=== PATIENT | male | born 1950 | race Caucasian/White ===

== ENCOUNTER 2019-04-04 10:57 | Inpatient (IN) | payer OTHER ==
[~2019-04-04] VITALS: Ht 175.3 cm; Wt 76.4 kg
--- OUTSIDE RECORDS SUMMARY | ~2019-04-04 | XMS | Clinical Summary ---
Demographics + + + | Address | [address] | | | [place] [address] | + + + | Home Phone | | + + + | Preferred Language | Unknown | + + + | Marital Status | | + + + | Adventist Affiliation | 1009 | + + + | Race | Unknown | + + + | Ethnic Group | Unknown | + + + Author + + + | Author | [facility] (Historical as of | | | 02-25-19) | + + + | Organization | [facility] (Historical as of | | | 02-25-19) | + + + | Address | Unknown | + + + | Phone | Unavailable | + + + Support + + +---------+ + | Name | Relationship | Address | Phone | + + +---------+ + | Joseluis Solis | ECON | Unknown | | + + +---------+ + Care Team Providers + +------+ + | Care Web Sizer Name | Role | Phone | + +------+ + | Oral Diaz MD | PP | | + +------+ + Allergies Not on File Current Medications Not on file Active Problems Not on file Social History + +-------+ +--------+------+ | Tobacco Use | Types | Packs/Day | Years | Date | | | | | Used | | + +-------+ +--------+------+ | Never Assessed | | | | | + +-------+ +--------+------+ + + + | Sex Assigned at | Date Recorded | | | | + + + | Not on file | | + + + Plan of Treatment Not on file Results Not on filefrom Last 3 Months"
--- OUTSIDE RECORDS SUMMARY | ~2019-04-04 | XMS | Clinical Summary ---
Demographics + + + | Address | [address] | | | [place] [address] | + + + | Home Phone | | + + + | Preferred Language | Unknown | + + + | Marital Status | Single | + + + | Christianity Affiliation | 1009 | + + + | Race | Unknown | + + + | Ethnic Group | Unknown | + + + Author + + + | Author | [facility] | | | and [place] | + + + | Organization | [facility] | | | and [place] | + + + | Address | Unknown | + + + | Phone | Unavailable | + + + Support + + + + + | Name | Relationship | Address | Phone | + + + + + | Ada Yun | ART | [place], | | + + + + + Care Team Providers + +------+ + | Care Packager Hand Name | Role | Phone | + +------+ + | Jen Oro MD | PCP | | + +------+ + Allergies No Known Allergies Medications + + + +---------+------+------+-------+ | Medication | Sig | Dispensed | Refills | Star | End | Statu | | | | | | t | Date | s | | | | | | Date | | | + + + +---------+------+------+-------+ | sildenafil | Take 50 mg by mouth | | 0 | | | Activ | | (VIAGRA) 100 MG | as needed for | | | | | e | | tablet | Erectile Dysfunction | | | | | | | | (take one-half | | | | | | | | tablet by mouth | | | | | | | | every day for | | | | | | | | erectile dysfuntion; | | | | | | | | no more than 1 dose | | | | | | | | per day/4 per | | | | | | | | month). | | | | | | + + + +---------+------+------+-------+ | cholecalciferol | Take 2,000 Units by | | 0 | | | Activ | | (VITAMIN D-3) 1,000 | mouth Daily. | | | | | e | | units tablet | | | | | | | + + + +---------+------+------+-------+ | ALBUTEROL IN | Inhale into the | | 0 | | | Activ | | | lungs 2 times daily. | | | | | e | + + + +---------+------+------+-------+ | amLODIPine | Take 10 mg by mouth | | 0 | | | Activ | | (NORVASC) 10 MG | Daily. | | | | | e | | tablet | | | | | | | + + + +---------+------+------+-------+ | | Take 25 mg by mouth | | 0 | | | Activ | | hydrochlorothiazide | Daily. | | | | | e | | 25 mg tablet | | | | | | | + + + +---------+------+------+-------+ | pravastatin | Take 80 mg by mouth | | 0 | | | Activ | | (PRAVACHOL) 80 MG | nightly. | | | | | e | | tablet | | | | | | | + + + +---------+------+------+-------+ | ASPIRIN 81 PO | Take 81 mg by mouth | | 0 | | | Activ | | | Daily. | | | | | e | + + + +---------+------+------+-------+ | tamsulosin | Take 0.4 mg by mouth | | 0 | | | Activ | | (FLOMAX) 0.4 mg CAPS | Daily. | | | | | e | + + + +---------+------+------+-------+ | finasteride | Take 1 mg by mouth | | 0 | | | Activ | | (PROPECIA) 1 MG | Daily. | | | | | e | | tablet | | | | | | | + + + +---------+------+------+-------+ | | Inhale 1 puff into | | 0 | | | Activ | | albuterol-ipratropiu | the lungs 4 times | | | | | e | | m (COMBIVENT | daily. | | | | | | | RESPIMAT) 100-20 | | | | | | | | mcg/puff inhaler | | | | | | | + + + +---------+------+------+-------+ Active Problems + + + | Problem | Noted Date | + + + | Preventative health care | 05/17/2018 | + + + + + | Overview: SPERMATOCELECTOMY 05/13/18 [place] Morphologic | | features compatible with spermatocele | + + + + + | CAD (coronary artery disease) | 05/13/2018 | + + + + + | Overview: Cath 2006:1. Moderate coronary artery disease with | | 50% to 60% left circumflex and distal right coronary artery | | stenosis.2. No left ventriculogram done secondary to increased | | creatinine.3. Normal left ventricular end-diastolic pressure. | + + + + + | Kidney disease, chronic, stage I (GFR over 89 ml/min) | 05/13/2018 | + + + + + | Overview: GFR 70 - 05/11/2018 (Based on CR 1.24 and | | [place]) | + + + + + | Spermatocele | 05/13/2018 | + + + | H/O Colon polyps | 01/06/2016 | + + + + + | Overview: Adenomatous polyp of colon | | next colon 12/2018 due to dysplasia | + + + + + | Smoker - Daily | 01/04/2016 | + + + | Special screening for malignant neoplasms, colon | 01/03/2016 | + + + | Positive occult stool blood test | 01/03/2016 | + + + | Hypertension | | + + + | Hyperlipidemia | | + + + | COPD (chronic obstructive pulmonary disease) | | + + + Family History + + +------+ + | Medical History | Relation | Name | Comments | + + +------+ + | Heart attack | Father | | | + + +------+ + | Diabetes | Mother | | | + + +------+ + | Heart attack | Mother | | | + + +------+ + | Diabetes | Sister | | | + + +------+ + + +------+ + + | Relation | Name | Status | Comments | + +------+ + + | Father | | | | + +------+ + + | Mother | | | | + +------+ + + | Sister | | | | + +------+ + + Social History + + + +--------+------+ | Tobacco Use | Types | Packs/Day | Years | Date | | | | | Used | | + + + +--------+------+ | Current Every Day | Cigarettes | 1 | 50 | | | Smoker | | | | | + + + +--------+------+ + +---+---+---+ | Smokeless Tobacco: | | | | | Never Used | | | | + +---+---+---+ + + +---------+ + | Alcohol Use | Drinks/We | oz/Week | Comments | | | ek | | | + + +---------+ + | Yes | 0 | 0.0 | 6 pack beer/ year | | | Standard | | | | | drinks or | | | | | | | | | | equivalen | | | | | t | | | + + +---------+ + + + + | Sex Assigned at | Date Recorded | | | | + + + | Not on file | | + + + + + + + | Job Start Date | Occupation | Industry | + + + + | Not on file | Not on file | Not on file | + + + + + + + + | Travel History | Travel Start | Travel End | + + + + + + | No recent travel history available. | + + Last Filed Vital Signs + + + + | Vital Sign | Reading | Time Taken | + + + + | Blood Pressure | 118/74 | 05/24/2018836 PST | + + + + | Pulse | 72 | 05/24/2018836 PST | + + + + | Temperature | 37.1 C (98.8 F) | 05/13/2018 1615 PDT | + + + + | Respiratory Rate | 16 | 05/24/2018836 PST | + + + + | Oxygen Saturation | 99% | 05/13/20185 PDT | + + + + | Inhaled Oxygen | - | - | | Concentration | | | + + + + | Weight | 84.1 kg (185 lb 6.5 | 05/24/2018836 PST | | | oz) | | + + + + | Height | 175.3 cm (5' 9") | 05/24/2018836 PST | + + + + | Body Mass Index | 27.38 | 05/24/2018 0837 PST | + + + + Plan of Treatment + + + + + | Health Maintenance | Due Date | Last Done | Comments | + + + + + | Hepatitis C | | | | | Screening | 0 | | | + + + + + | Vaccine: | | | | | Dtap/Tdap/Td (1 - | 9 | | | | Tdap) | | | | + + + + + | Vaccine: Zoster (1 | | | | | of 2) | 0 | | | + + + + + | AAA Screening | | | | | | 5 | | | + + + + + | Vaccine: | | | | | Pneumococcal 65+ | 5 | | | | Low/Medium Risk (1 | | | | | of 2 - PCV13) | | | | + + + + + | Adult Annual | | | | | Wellness Visit | 6 | | | + + + + + | Statin Therapy | | | | | (optimal intensity) | 6 | | | + + + + + | Vaccine: Influenza | | | | | (#1) | 9 | | | + + + + + | Lung Cancer | | 04/07/2018 | | | Screening | 9 | | | + + + + + | Colorectal Cancer | | 01/06/2016, 01/06/2016 | | | Screening | 6 | | | | (Colonoscopy) | | | | + + + + + Results Not on filefrom Last 3 Months Insurance + +--------+ +--------+-------+---------+--------+ | Payer | Benefi | Subscriber | Effect | Phone | Address | Type | | | t Plan | ID | hudson | | | | | | / | | Dates | | | | | | Group | | | | | | + +--------+ +--------+-------+---------+--------+ | [employer] | [employer] | [id number] | 04/28/ | | | Indemn | | | NS | | 2018-P | | | ity | | | ADMIN | | resent | | | | | | [place] | | | | | | | | [place] | | | | | | + +--------+ +--------+-------+---------+--------+ | [employer] | [place] | [id number] | | | | Indemn | | | CHOICE | | 016-Pr | | | ity | | | PC3 | | esent | | | | + +--------+ +--------+-------+---------+--------+ + +--------+ +--------+ + + | Guarantor Name | Accoun | Relation to | Date | Phone | Billing Address | | | t Type | Patient | of | | | | | | | | | | + +--------+ +--------+ + + | Kiana Solis | Person | Self [birth year] | [address] | | | al/Fam | | 1950 | [phone] | [address] [place], | | | [place] | | | [address] (Home) | [place] [address] | + +--------+ +--------+ + + Advance Directives Patient has advance care planning documents, and code status on file. For more information, please contact:[facility] [place] [address] + + + + + | Code Status | Date | Date | Comments | | | Activated | Inactivated | | + + + + + | Full Code | 05/13/2018 | 05/13/2018 | | | | 17:09 | 19:48 | | + + + + +
[~2019-04-04 10:57] MED LIST: ADULT LOW DOSE81 MG PO; AMLODIPINE BESY10 MG PO; FINASTERIDE5 MG PO; FLOMAX0.4 MG PO; HYDROCHLOROTH12.5 MG PO; NEURONTIN600 MG PO; PRAVACHOL80 MG PO; VENTOLIN HFA18 GM INH; VITAMIN D32000 UNIT PO
[2019-04-05] MEDS ORDERED: OXYBUTYNIN CHLOR5 MG PO (13:17)
--- NOTE | 2019-04-14 12:04 | NUR ---
PT HAS WAITED WITHOUT NEEDS. HAS BEEN UPDATED EVERY HOUR. HAS STATED OK. IV PATENT.
--- NOTE | 2019-04-14 14:34 | NUR ---
04/14/19 1434 Yen Saavedra7- PT ARRIVES TO PACU NOANROUSABLE TO NOXIOUS STIMULI WITH OPA IN PLACE. RESP EVEN AND UNLABORED. OXYGEN SAT HIGH 90'S TO 100% ON 6L VIA MASK.
--- NOTE | 2019-04-14 15:40 | NUR ---
PATIENT BROUGHT TO UNIT BY LIFT SLAB OPERATOR. REPORT RECEIVED. D5LR RUNNING AT 100 MLS/HR. BULGING TO LEFT ABDOMEN NOTED, DR. DONIS AND SILVICULTURIST NOTIFIED. SILVICULTURIST TO ROOM TO EXAMINE PATIENTS ABDOMEN. FLUID RESTRICTION OF 350 MLS FOR FIRST 8 HOURS EXPLAINED TO PATIENT, HE IS AGREEABLE. 300 MLS OF FLUID BROUGHT TO BEDSIDE. DRESSING IS CLEAN, DRY, AND INTACT. CARNEY IN PLACE. PATIENT IS DROWSY, REPORTS PAIN OF 6/10. ICE APPLIED TO THE ABDOMEN, PILLOW IN PLACE FOR SPLINTING. VITAL SIGNS TAKEN, PATIENT IS STABLE. FAMILY AT BEDSIDE.
--- NOTE | 2019-04-14 16:44 | NUR ---
PATIENT LAYING IN BED WATCHING TV WITH FAMILY IN ROOM. BOWEL TONES ACTIVE IN ALL FOUR QUADRANTS. ABDOMINAL HEMATOMA MARKED PER TOOL CARRIER ORDER. WILL CONTINUE TO ASSESS HEMATOMA. MIDLINE INCISION ABD IS CLEAN, DRY, AND INTACT. VITAL SIGNS STABLE. WARM BLANKET PROVIDED. NO FURTHER NEEDS AT THIS TIME, CALL LIGHT WITHIN REACH.
--- NOTE | 2019-04-14 17:15 | NUR ---
VITALS STABLE, ASSESSMENT COMPLETE. INCISION CLEAN, DRY, AND INTACT. PAIN /. NO N/V, DENIES ANY NEEDS. CALL LIGHT WITHIN REACH.
--- NOTE | 2019-04-14 18:52 | NUR ---
PT C/O 10 PAIN, REPOSITIONED, ICE TO MID LINE, DRSG CDI, CARNEY PATENT, DILAUDID 0.5MG IV GIVEN, ENCOURAGE USE OF INCENTIVE SPIROMETER X5, CONT. PULSE OXIMETER 96% ON RA.IVF PATENT.
--- NOTE | 2019-04-14 19:15 | NUR ---
SHIFT REPORT RECEIVED FROM [facility] RN GERSON AND SHANE AT BEDSIDE. PT AWAKE AND RESTING IN BED. MIDLINE DRESSING C/D/I, NO SHADOWING OR DRAINAGE NOTED. OUTLINE TO PT'S LEFT LATERAL, RELATED TO POSSIBLE HEMOTOMA. WILL MONITOR. SCD'S IN PLACE. CPOX ALSO NOTED, PT ON RA, O2 SAT AND HR WNL. NO FURTHER NEEDS. CALL LIGHT IN REACH. IV FLUIDS INFSUING PER MD ORDERS, SITE WNL.
--- NOTE | 2019-04-14 19:30 | NUR ---
THE NURSE AND I PUT PEDRITO HOSE ON PATIENT AROUND 1720.
--- NOTE | 2019-04-14 21:45 | NUR ---
ASSESSMENT COMPLETE, VSS. CPOX IN PLACE, PT ON RA. O2 SAT AND HR WNL. CARNEY CATHETER IN PLACE, WILL CONTINUE TO MONITOR UO. PT ON FLUIDS RESTRICTION AND ON CLEAR LIQUID DIET. RESTRICTION EXPLAINED TO PT. IV FLUIDS INFUSING PER MD ORDERS, IV SITE WNL. MIDLINE DRESSING CDI, NO SHADOWING OR DRAINAGE NOTED. SUSPECTED HEMOTOMA TO LEFT LATERAL OUTLINED ON DAYSHI. NO CHANGES FROM SHIFT REPORT NOTED, WILL MONITOR. SCHEDULED MEDS GIVEN, SEE EMAR. PT REPORTS 4/10 PAIN, PO MOTRIN PROVIDED. BILATERAL SCD'S AND PEDRITO HOSE IN PLACE. NO FURTHER NEEDS, CALL LIGHT IN REACH.
--- NOTE | 2019-04-14 22:24 | NUR ---
VITALS AND I&OS DONE AND CHARTED. BEDSIDE TABLE AND CALL LIGHT IN REACH.
--- NOTE | 2019-04-14 23:00 | NUR ---
PT RESTING IN BED, EYES OPEN. IV FLUIDS INFUSING PER MD ORDERS, IV SITE WNL. CPOX IN PLACE, PT ON RA. O2 SAT AND HR WNL. WARM BLANKET PROVIDED PER PT REQUEST. NO FURTHER NEEDS, CALL LIGHT IN REACH.
--- NOTE | 2019-04-15 01:41 | NUR ---
ASSESSMENT COMPLETE, VSS. PT REPORTS 8/10 PAIN. 200 MLS OF WATER AT BEDSIDE, PT ON CLEAR LIQUID DIET. REFUSES BROTH AT THIS TIME. NO CHANGES REGARDING ABDOMINAL DRESSING OR SIZE OF SUSPECTED LEFT LATERAL HEMOTOMA. WILL MONITOR. CARNEY CATHETER IN PLACE, VOIDING QS AT THIS TIME. NEW BAG OF IV FLUIDS ASLO HUNG, IV SITE WNL. PT UP SBA WITH USE OF WALKER AND AMBULATED IN ROOM. TOLERATED AMBULATION WELL, CPOX IN PLACE. O2 SAT AND HR REMAINED WNL. BILATERAL SCD'S AND PEDRITO HOSE IN PLACE. NO FURTHER NEEDS, CALL LIGHT IN REACH.
--- NOTE | 2019-04-15 03:18 | NUR ---
PT RESTING IN BED, EYES CLOSED. CPOX IN PLACE, O2 SAT AND HR WNL. IV FLUIDS INFUSING PER MD ORDERS, IV SITE WNL. PT APPEARS COMFORTABLE, NO DISTRESS NOTED.
--- NOTE | 2019-04-15 05:00 | NUR ---
NICOTINE PATCH NOTED TO LEFT SHOULDER. REMOVED AT THIS TIME.
--- NOTE | 2019-04-15 05:14 | NUR ---
PT A/OX4, VSS. CPOX IN PLACE, PT ON RA. USES CALL LIGHT APPROPERIATELY. PT AMBULATED IN ROOM, TOLERATED WELL. IV FLUIDS INFUSING AT 100MLS/HR, IV SITE WNL. CARNEY CATHETER DISCONTINUED AT APPROX 0600, PT VOIDING QS THROUGHOUT THE NIGHT. PAIN CONTROLLED WITH PO PAIN MEDICATION, CLEAR LIQUID DIET WITH FLUIDS RESTRICTION. NO NAUSEA THIS SHIFT. MIDLINE DRESSING C/D/I.
--- NOTE | 2019-04-15 05:17 | NUR ---
VITALS AND I&OS DONE AND CHARTED. GARBAGES EMPTIED. BEDSIDE TABLE AND CALL LIGHT IN REACH.
--- NOTE | 2019-04-15 05:41 | OR ---
[facility] [address], [place] [address] Signed DATE OF OPERATION: 04/14/2019 SURGEON: Isabella Donis MD PREOPERATIVE DIAGNOSIS: Cecal sessile villous adenomatous polyp. POSTOPERATIVE DIAGNOSIS: Cecal sessile villous adenomatous polyp. PROCEDURE: Right colectomy with stapled phzj-wz-kcll ileocolic anastomosis. ESTIMATED BLOOD LOSS: Minimal. FINDINGS: Kiana had a 3 cm sessile circular mucosal lesion opposite the ileocecal valve. No visible or palpable studding of the perineum and liver. No palpable lymphadenopathy. INDICATIONS: Kiana is a 69-year-old gentleman, who presented for a followup colonoscopy. He has a personal history of colonic polyps dating back to 2016. He had a small adenomatous polyp removed at 55 cm. He had tiny hyperplastic polyps removed at 5 cm in the rectum. Unfortunately, he has a sessile villous adenomatous polyp opposite the ileocecal valve. It was negative for high-grade dysplasia or carcinoma. He has just a little bit of diverticulosis. He does have a long redundant colon. A little bit of internal hemorrhoids. I had met with Kiana in the office. I reviewed all the photos with Kiana along with the pathology report. I explained to Kiana this circular sessile polyp was too wide to remove safely with the colonoscope. Consequently, we have to treat it as a cancerous lesion and perform a formal right colectomy. I gave him a [employer] brochure on colorectal polyps and cancer. I marked the location of this lesion on the pictures. I circled all the sections relevant to him. We reviewed in detail the pictures involving the right colectomy. He understands the nature of that surgery along with the expected intraop and postop course. There is risk to the surgery including, but not limited to bleeding, infection, scarring, change in contour of the skin, damage to bowel, anastomotic leak, incisional hernias and other unforeseen comorbidities. We also mike a preoperative CEA level, which was normal at 3.2. He had expressed understanding and wished to proceed. Electronically Signed By: ISABELLA DONIS MD 04/15/19 0541 PATIENT NAME: KIANA JACKSON OPERATIVE REPORT DATE OF : 50 REPORT #: [id number] PHYSICIAN: ISABELLA DONIS MD PCP: ELIE ROSAS NP REPORT IS CONFIDENTIAL AND NOT TO BE RELEASED WITHOUT AUTHORIZATION [facility] [address] [place] [id number] Signed PROCEDURE NOTE: I met with Kiana and his two sisters in our preop area. We had reviewed the above findings. We answered all their questions. After this, Kiana was taken into the operating room and placed in the supine position under general endotracheal tube anesthesia. An orogastric tube had been placed for the duration of surgery. Bilateral tap blocks were placed by our nurse and hoop machine operator. A Fitzgerald catheter was inserted without difficulty with return of clear yellow urine. He was given preoperative antibiotics along with subcutaneous heparin. SCDs were utilized. He was then prepped and draped in the usual sterile fashion. After this, a standard periumbilical midline incision was made and carried into the abdomen with the help of the cautery without difficulty. He had a typical small 12 to 15 mm umbilical hernia. After this, we discovered that he had a fairly mobile cecum and we brought it over and we could easily feel the lesion opposite the ileocecal valve. It was not coming through the serosal surface. It was not adherent to the abdominal wall. We saw no peritoneal studding and there was no evidence of any visible or palpable lesions on the liver. After this, we took down the right colon along the white line of Toldt with the help of the cautery and we mobilize it completely over to the midline including the hepatic flexure over across the top of the duodenum and top of the pancreas. The cecum and appendix were elevated as well in a similar fashion. We divided the terminal ilium about 10 to 12 cm proximal to the cecum with the help of the linear stapler. Similarly, we divided the transverse colon with the help of a linear stapler. The mesocolon was taken down with Pean clamps and [address] the way down including the small bowel mesentery. The entire specimen was thus passed off the field. The specimen had been opened on the back table by our circulating nurse. The lesion was quite visible. We took two pictures for photodocumentation. It was clear that this was too large, too broad, and too thick to remove safely with the colonoscope. We also took down a few adhesions from the gallbladder to the omentum. The terminal ileum was then brought over to the proximal right colon and a standard rgyr-bo-jjot stapled anastomosis was performed. We used 3-0 silk suture posteriorly. We opened the corners of the bowel and brought the colon together with the 75 mm stapler. The ends of the bowel were completely removed with the help of the TA-60 stapler. We then imbricated the anterior staple line with several 3-0 silk Lembert stitches. This gave a nice palpably patent anastomosis about 2.5 almost 3 cm in length. We then closed the mesenteric rent with a running 0 Vicryl suture. The abdomen was copiously irrigated and suctioned out until clear. The bowel was returned to its position and the omentum was brought down over the bowel as well. Our Bookwalter retractor was then removed. We closed the midline fascia with interrupted qtxvrw-ln-zbwbp and simple #1 PDS sutures. The wound was irrigated and suctioned out until clear. We brought the dermis together with interrupted 3-0 Monocryl sutures. The skin edges were reapproximated with multiple frenando. Dry gauze and tape were then applied. Kiana was then awakened from his anesthesia, extubated in the OR, and taken to recovery room in stable condition. A Fitzgerald catheter was left in place. Electronically Signed By: ISABELLA DONIS MD 04/15/19 0541 PATIENT NAME: KIANA JACKSON OPERATIVE REPORT DATE OF : 50 REPORT #: [id number] PHYSICIAN: ISABELLA DONIS MD PCP: ELIE ROSAS NP REPORT IS CONFIDENTIAL AND NOT TO BE RELEASED WITHOUT AUTHORIZATION [address] [address] Signed MD ERICK Mcghee/SENIAL /[id number] cc: MD Jen Mcghee MD Copies: ISABELLA DONIS MD ~ Electronically Signed By: ISABELLA DONIS MD 04/15/19 0541 PATIENT NAME: KIANA JACKSON OPERATIVE REPORT DATE OF : 50 REPORT #: [id number] PHYSICIAN: ISABELLA DONIS MD PCP: ELIE ROSAS NP REPORT IS CONFIDENTIAL AND NOT TO BE RELEASED WITHOUT AUTHORIZATION
--- NOTE | 2019-04-15 06:00 | NUR ---
DR DONIS IN ROOM TO ASSESS PT. ABDOMINAL DRESSING REMOVED BY THIS RN PER MD ORDERS, INCISION WELL APPROXIMATED. LEIGH NOTED. CARNEY CATHETER ALSO DISCONTINUED PER MD ORDERS, PT TOLERATED WELL. NO FURTHER NEEDS, CALL LIGHT IN REACH.
--- NOTE | 2019-04-15 07:32 | NUR ---
REPORT RECEIVED FROM MOISES LEAL. PT RESTING IN BED. PT AGREES TO GET UP FOR BREAKFAST THIS MORNING. PT CONCERNED ABOUT SNAGING LEIGH WITH NO DRESSING ON HIS WOUND. EDUCATION DONE WITH PT. PT VERBALZES UNDERSTANDING. SHOWER PLANNED FOR TODAY. PT REPORTS 5/10 PAIN THAT IS "TOLERABLE." PT DENIES NEED FOR PAIN MEDICATION AT THIS TIME. PT REQUESTING FOOD BUT AGREES TO A POPSICLE OR JELLO. O2 98% ON ROOM AIR, HR = 82. BED RAILS UP. CALL LIGHT WITHIN REACH.
--- NOTE | 2019-04-15 08:06 | NUR ---
MORNING ASSESSMENT AND MEDICAITONS DUE. THIS RN TO BEDSIDE. POPSICLE GIVEN TO PT PER REQUEST. PT STATES HE WOULD LIKE TO EAT AND DRINK MORE. ASSESSMENT DONE. LUNG SOUNDS CLEAR. O2 98% ON ROOM AIR. PT DEMONSTRATES USE OF I.S. 2000ML. RT TO BEDSIDE FOR BREATHING TX. WOUND C/D/I WITH EDGES WELL APROXIMATED. SBA UP TO CHAIR. PT STEADY ON FEET. PT REPORTS 6/10 PAIN. SEE MAR FOR MEDICATION GIVEN. NO ADDITIONAL REQUESTS OR COMPLAINTS AT THIS TIME. CALL LIGHT WITHIN REACH. EDUCATION DONE WITH PT REGARDING PLAN OF CARE.
--- NOTE | 2019-04-15 09:36 | NUR ---
THIS RN TO ROOM TO CHECK ON PT. PT CONTINUES TO REPORT 5/10 PAIN AND REQUESTS ADDITIONAL PAIN MEDICATION. O2 97% ON ROOM AIR. HR 78. SEE MAR FOR MEDICATION GIVEN. PT CONTINUES TO BE DTV. WILL BLADDER SCAN SOON IF PT DOES NOT VOID. PT DRIFTS OFF TO SLEEP. O2 REAMINS AT 97% ON ROOM AIR. CALL LIGHT WITHIN REACH.
--- NOTE | 2019-04-15 10:46 | NUR ---
THIS RN TO ROOM TO CHECK ON PT. PT DENIES PAIN AND NAUSEA. SBA UP TO RESTROOM TO ATTEMPT TO VOID. PT ABLE TO VOID 300ML. SBA BACK TO CHAIR. NO ADDITIONAL REQUESTS OR COMPLAINTS. O2 100% ON ROOM AIR. CALL LIGHT WITHIN REACH.
--- NOTE | 2019-04-15 12:02 | NUR ---
NOON ASSESSMEN DUE. PT UP TO CHAIR. PT REPORTS 2/10 PAIN THAT IS "MUCH BETTER." PT UP TO AMBULATE X1 LAB IN [place] WITH THIS RN. SHOWER PLANNED FOR AFTER LUNCH. SBA FOR AMBULATION, PT BACK TO CHAIR. ASSESSMENT DONE. MEDICATION GIVEN. NO ADDITIONAL REQUESTS OR COMPLAINTS AT THIS TIME. FRIENDS AT BEDSIDE. CALL LIGHT WITHIN REACH. NO ADDITIONAL REQUESTS OR COMPLAINTS AT THIS TIME.
--- NOTE | 2019-04-15 12:18 | NUR ---
PT UPSET ABOUT LACK OF FOOD AND DRINK. MD CONSULTED REGARDING FLUID RESTRICITON. ORDERS TO INCREASE FLUID RESTRICTION TO 500ML Q8HR. JELLOW AND POPSICLE PROVIDED FOR PT. EDUCATION DONE. PT VERBALIZES UNDERSTANDING WITH REPEAT BACK.
--- NOTE | 2019-04-15 14:01 | NUR ---
REPORT GIVEN TO MOISES LIN. QUESTIONS ASKED AND ANSWERED.
--- NOTE | 2019-04-15 15:24 | NUR ---
PT denies need to void at this time. Several family visitors in room at this time. Plan to bladder scan pt here shortly once visitors leave.
[2019-04-15] MEDS ORDERED: COMBIVENT RESPIM4 GM INH (16:16)
--- NOTE | 2019-04-15 16:23 | NUR ---
Medications reconciled using [facility] and patient interview
--- NOTE | 2019-04-15 17:15 | NUR ---
[facility] FOR [facility]POR[facility] OF 5/10 ABD PAIN.
--- NOTE | 2019-04-15 18:55 | NUR ---
SHIFT REPORT RECEIVED FROM DAYSHIFT MOISES ARMENDARIZ AT BEDSIDE. PT RESTING IN CHAIR, EYES CLOSED, RR WNL. ABDOMINAL INCISION OPEN TO AIR, LEIGH NOTED. PER SHIFT REPORT, HEMATOMA TO LEFT LATERAL RESOLVED. PT DENIES ADDITIONAL NEEDS, CALL LIGHT IN REACH.
--- NOTE | 2019-04-15 22:20 | NUR ---
ASSESSMENT COMPLETE, SCHEDULED MEDICATIONS GIVEN (SEE EMAR). NICOTINE PATCH ALSO REMOVED. PT REPORTS 6/10 PAIN, PRN NORCO ADMINISTERED. ABDOMINAL INCISION OPEN TO AIR, LEIGH INTACT, SITE WELL APPROXIMATED. IV FLUIDS INFUSING PER MD ORDERS, IV SITE WNL. SCD'S AND PEDRITO HOSE IN PLACE. NO FURTHER NEEDS, CALL LIGHT IN REACH.
--- NOTE | 2019-04-15 22:22 | NUR ---
ROUNDED CHARGE. PATIENT IS RESTING IN BED. PRIMARY RN AND SOIL SURVEYOR IN ROOM. PATIENT DENIES ANY COMMENTS, QUESTIONS OR CONCERNS. NO NEEDS NOTED. CALL LIGHT IN REACH.
--- NOTE | 2019-04-15 22:25 | NUR ---
VITALS/OUTPUT RECORDED, NURSE TO CALC FL INPUT,
--- NOTE | 2019-04-15 22:32 | NUR ---
SBA PT TO RR, SBA BK INTO BED
--- NOTE | 2019-04-15 23:46 | NUR ---
PT RESTING IN BED, EYES CLOSED, RESPIRATIONS EVEN AND UNLABORED. PT DENIES NEEDS, CALL LIGHT IN REACH. SCD'S AND PEDRITO HOSE IN PLACE.
--- NOTE | 2019-04-16 01:15 | NUR ---
pt resting in bed, eyes closed. respirations even and unlabored. no distress noted, call light in reach.
--- NOTE | 2019-04-16 03:05 | NUR ---
bladder scan done for 733 informed rickey shelton. took pt for a short walk on the [facility] floor. pt said he needed to get back and go to the bathroom. pt urinated 400. per rickey shelton i bladder snanned pt again for 496
--- NOTE | 2019-04-16 03:05 | NUR ---
SBA PT TO WALK DOWN THE M/S HALLWAY AND BK TO THE .
--- NOTE | 2019-04-16 03:20 | NUR ---
PT REPORTS NEED TO VOID, ONLY ABLE TO VOID 100MLS. BLADDER SCANNED, RESULT OF 733. PT AMBULATED IN HALLWAY TO ATTEMPT TO STIMULATE BLADDER THEN HAD 400 MLS OUTPUT. PT THEN SCANNED AGAIN, RESULT OF 496. DISCUSSED FINDINGS WITH AERONAUTICAL RESEARCH ENGINEERMOISES CARL. WILL CONTINUE TO MONITOR. ASSESSMENT COMPLETE, OTHER THAN ISSUES RELATED TO VOIDING, NO OTHER CONCERNS OR CHANGES. PT DENIES PAIN. ABDOMINAL INCISION OPEN TO AIR, LEIGH INTACT. WELL APPROXIMATED. SCD'S AND PEDRITO HOSE IN PLACE. NO FURTHER NEEDS, CALL LIGHT IN REACH.
--- NOTE | 2019-04-16 05:09 | NUR ---
HELPED PT WALK THE CALERO IN GERARD SURG. PT REQUESTED TO GO BACK AFTER ABOUT 2-3 MIN TO GO TO THE BATHROOM. HELPED PT BACK TO BED FROM THE BATHROOM. BEDSIDE TABLE AND CALL LIGHT IN REACH. BLADDER SCANNED PT FOR 368. INFORMED MOISES LEAL. VITALS AND I&OS DONE AND CHARTED.
--- NOTE | 2019-04-16 08:21 | NUR ---
PATIENT SITTING UP IN CHAIR. WARM WASHCLOTH OFFERED AND TAKEN. SHOWER OFFERED PATIENT REFUSED. CALL LIGHT IN REACH. PATIENT WAS GIVEN JOLLY RANCHERS TO SUCK ON. NO FUTHER NEEDS AT THIS TIME.
--- NOTE | 2019-04-16 08:30 | NUR ---
ADMIN TWO TABS STEVENSON FOR REPORTS OF 6/10 ABD PAIN.
--- NOTE | 2019-04-16 09:50 | NUR ---
NEW ORDERS TAKEN FROM DR. DONIS OVER PHONE. ORDER TO ADVANCE DIET TO FULL LIQUIDS AND REDUCE IV FLUID RATE TO 75ML/HR. COMMUNICATED TO DR. DONIS THAT PHYSICIAN/ALLERGY/IMMUNOLOGY REPORTED PT WAS HAVING ONGOING URINE RETENTION WITH LARGE QUANTITY OF URINE OUTPUT. PT IS TAKING FLOMAX AND OXYBUTYIN FOR THIS. NO OTHER CHANGES AT THIS TIME.
--- NOTE | 2019-04-16 10:31 | NUR ---
PT REPORTING NAUSEA. ADMIN ZOFRAN 8MG IVP. PT HAS NOT EATED ANYTHING THIS AM OF YET.
--- NOTE | 2019-04-16 10:35 | NUR ---
PT REPORTS NOT EATING HIS JELLO THIS AM WITH HIS PAIN MEDS. ORDERED SOUP FOR HIM AT THIS TIME AND ENCOURAGED HIM TO EAT WHEN HE CAN TOLERATE.
--- NOTE | 2019-04-16 14:15 | NUR ---
Admin one tab norco 5/325mg po for reports of 6/10 abd pain.
--- NOTE | 2019-04-16 16:48 | NUR ---
ADMIN OXYCODONE 10MG PO AND IBUPROFEN 800MG PO FOR REPORTS OF 8/10 ABD PAIN.
--- NOTE | 2019-04-16 19:15 | NUR ---
SHIFT REPORT RECEIVED FROM MAVERICK ARMNEDARIZ AT BEDSIDE. PT AWAKE AND IS RESTING IN CHAIR, IV FLUIDS INFUSING PER MD ORDERS, IV SITE WNL. ABDOMINAL INCISION OPEN TO AIR, LEGIH INTACT. WELL APPROXIMATED. CALL LIGHT IN REACH.
--- NOTE | 2019-04-16 20:50 | NUR ---
ASSESSMENT COMPLETE, SCHEDULED MEDS GIVEN (SEE EMAR). PT AWAKE AND RESTING IN BED, FAMILY IN ROOM. ABDOMINAL INCISION OPEN TO AIR, LEIGH INTACT. SITE WELL APPROXIMATED. PT DENIES NAUSEA, BUT REPORTS FEELING "BLOATED". ABDOMINAL FIRM, PT REPORTS PASSING GAS ON DAYSHIFT.IV FLUIDS INFUSING, SITE WNL. PEDRITO HOSE IN PLACE.
--- NOTE | 2019-04-16 20:51 | NUR ---
ROUNDED CHARGE. PATIENT IS RESTING IN RECLINER. PATIENTS PRIMARY RN AND CONSERVATION POLICY ANALYST PRESENT IN THE ROOM. PATIENT DENIES ANY COMMENTS, QUESTIONS OR CONCERNS. NO NEEDS NOTED. CALL LIGHT IN REACH.
--- NOTE | 2019-04-16 22:33 | NUR ---
THIS RN IN ROOM TO AMBULATE WITH PT. THIS RN FOUND PT IN BED RSETING, EYES CLOSED, RESPIRATINS EVEN AND UNLABORED. WILL ENCOURAGE REST AND AMBULATE LATER IN SHIFT. IV FLUIDS INFUSING, IV SITE WNL. CALL LIGHT IN REACH.
--- NOTE | 2019-04-17 00:16 | NUR ---
PT CALLED OUT JUST BEFORE MIDNIGHT STATING THAT HE NEEDED TO VOMITE. PT THEN VOMITED 400MLS. 8MG OF PRN ZOFRAN IV WAS GIVEN. ABD IS VERY FIRM WITH NO BOWEL TONES PRESENT IN THE LOWER QUADRANTS. MD DONIS WAS CALLED AND AN ORDER FOR NPO STATUS AND AN NG-TUBE WAS RECEIVED. BLADDER SCAN WAS ALSO DONE WHICH SHOWED 392ML PRESENT. PT DID VOID 200ML AFTERWARD.
--- NOTE | 2019-04-17 01:00 | NUR ---
NG TUBE PLACED BY MOISES VÁSQUEZ. THIS RN AND MOISES ARAUZ ALSO IN ROOM. PT TOERATED INSERTION WELL, NG TUBE CLAMPED. IMAGING CALLED FOR PLACEMENT VERIFICATION. NEW GOWN PROVIDED, BED LINENS ALSO CHANGED. ASSESSMENT COMPLETE, PT DENIES NAUSEA, ABDOMEN FIRM AND DISTENDED, BOWEL TONES HYPOACTIVE. INCISION WELL APPROXIMATED, OPEN TO AIR WITH LEIGH. IV FLUIDS INFUSING PER MD ORDERS, IV SITE WNL. NO FURTHER NEEDS, CALL LIGHT IN REACH.
--- NOTE | 2019-04-17 01:10 | NUR ---
IMAGING IN ROOM WITH PT.
--- NOTE | 2019-04-17 02:00 | NUR ---
RESULTS FROM IMAGING RECEIVED. PER RECOMMENDATION OF IMAGING RESULTS, ADVANCE NG TUBE 7CM . ADVANCEMENT COMPLETED WITH HELP FROM MOISES CARL. NG TUBE CONNECTED TO LWIS, APPROX 400MLS INITIAL OUTPUT COLLECTED. OUTPUT BROWN/RED IN COLOR. PT HAD JELLO EARLIER IN SHIFT. NO FURTHER NEEDS, CALL LIGHT IN REACH.
--- NOTE | 2019-04-17 03:34 | NUR ---
PT RESTING IN BED, ASSESSMENT COMPLETE. PT TITRATED TO RA, 02 SAT 90-91%, WILL MONITOR. LUNG SOUNDS DIMINISHED, PT CONVERSING WITH NURSING STAFF. NO DISTRESS NOTED. PT DENIES PAIN, NO FURTHER NEEDS, CALL LIGHT IN REACH.
--- NOTE | 2019-04-17 07:27 | NUR ---
PT UNABLE TO VOID OF YET. BLADDER SCAN COMPLETED; 395ML AT THIS TIME. DR. DONIS AWARE. NO NEW ORDERS.
--- NOTE | 2019-04-17 07:27 | NUR ---
PT DUE TO VOID, LAST VOID BETWEEN 0100 AND 0200. PT PLACED ON BSC, STILL UNABLE TO VOID. BLADDER SCANNED BY MOISES MENG, RESULT OF 395. DR DONIS PROVIDED WITH UPDATE REGARDING URINE OUTPUT WELL TOTAL NG TUBE OUTPUT. NO NEW ORDERS. TIP PUNCHERMOISES KIMBALL ALSO UPDATED.
--- NOTE | 2019-04-17 09:20 | NUR ---
PATIENT SLEEPING. WILL CHECK BACK LATER.
--- NOTE | 2019-04-17 10:03 | NUR ---
PT SLEEPING AT THIS TIME, RESP EVEN AND NON LABORED. PT HAS NO NOTABLE DISTRESS. SUCTION TO LIWS, PATENT NG TUBE; BROWN CLEAR GASTRIC CONTENT IN CANISTER. IV FLUIDS RUNNING AT 75ML/HR. PERSONAL SUPPLIES AND CALL LIGHT WITHIN REACH.
--- NOTE | 2019-04-17 11:00 | NUR ---
SPOKE WITH PATIENT IN ROOM. PATIENT LIVES ALONE IN APARTMENT. USES A CANE, HAS A WALKER TO USE IF NEEDED. PATIENT PREFERS TO GO HOME AT DISCHARGE. HAS SOME FAMILY IN THE AREA TO CALL FOR HELP IF NEEDED. DENIES ANY KNOWN BARRIERS TO GOING HOME SAFELY AT DISCHARGE. WILL FOLLOW NEEDED.
--- NOTE | 2019-04-17 11:03 | NUR ---
PHENERGAN 12.5MG IVP ADMIN FOR REPORTS OF NAUSUEA.
--- NOTE | 2019-04-17 12:20 | NUR ---
MORPHINE 4MG IVP ADMIN FOR REPORTS OF 6/10 ABD PAIN.
--- NOTE | 2019-04-17 13:26 | NUR ---
PT ASLEEP, HIS 3 SISTERS IN . THEY HAVE TRAVELLED FROM [employer] THIS MORNING. PT ON NG TUBE, FAMILY KEEPING A CLOSE EYE ON HIM. FAMILY REQUESTED PRAYER, WILL CONTINUE TO FOLLOW NEEDED
--- NOTE | 2019-04-17 14:04 | NUR ---
PT AMBULATED IN HW WITH USE OF WALKER. PT TOLERATED WELL.
--- NOTE | 2019-04-17 16:26 | NUR ---
ADMIN TYLENOL 1000MG IVP FOR REPORTS OF 6/10 ABD PAIN.
--- NOTE | 2019-04-17 17:48 | NUR ---
PT A&OX4. RA. MARCY TONY. WALKED THE HALLS TODAY WITH STANDBY ASSIST. YUNIER. ANTONIA@. IV MORPHINE AND TYLENOL IN USE.
--- NOTE | 2019-04-17 18:21 | NUR ---
BLADDER SCAN COMPELTE; 340ML POST VOID.
--- NOTE | 2019-04-17 20:13 | NUR ---
RECEIVED REPORT FROM DAY SHIFT RN. PATIENT IS RESTING IN BED. NG IS TO LWIS. PATIENT DENIES ANY NEEDS. CALL LIGHT IN REACH.
--- NOTE | 2019-04-17 21:45 | NUR ---
PATIENT ASSESMENT COMPLETED. PATIENTS EVENING MEDICATIONS GIVEN PER ORDER. PATIENT DENIES ANY PAIN OR NAUSEA. PATIENTS VITALS TAKEN AND RECORDED. INTAKE AND OUPUT RECORDED. PATIENTS NG IS LWIS. PATIENT HAS IV INFUSING PER ORDER. PATIENT ONLY COMPLAINS OF MILD DIDSOCMFORT IN THROAT. PATIENT PROVIDED WITH HARD CANDY AND MOUTH SWABS. PATIENT IS RESTING IN BED. PATIENT DENIES ANY FURTHER NEEDS. HYPOACTIVE BOWEL TONES. ABD IS BLOATED BUT SOFT AND TENDER. PATIENT HAS LEIGH PRESENT IN MID ABD.
--- NOTE | 2019-04-18 00:14 | NUR ---
PATIENT IS RESTING IN BED WITH EYES CLOSED, RR 17. NQ LWIS. CALL LIGHT IN REACH.
--- NOTE | 2019-04-18 03:07 | NUR ---
PATIENT VITALS TAKEN AND RECORDED. PATIENTS INTAKE AND OUTPUT RECORDED. PATIENT ASSISTED TO THE RESTROOM. PATIENT WAS UNABLE TO VOID. PATIENT IS BACK IN BED RESTING. PATIENT RATES PAIN AT AN 8/10. PATIENT GIVEN PRN PAIN MEDICATION PER ORDER. PATIENT HAS SCDS IN USE. NG LWIS. PATIENT DENIES ANY NAUSEA. PATIENT WILL TRY AND VOID AGAIN AFTER PAIN MEDICATION TAKE AFFECT. PATIENT DENIES ANY FURTHER NEEDS. CALL LIGHT IN REACH.
--- NOTE | 2019-04-18 04:24 | NUR ---
PATIENT UP TO THE RESTRROM A SBA WITH CHALINO PACHECO. PATIENT WAS ABLE TO VOID. PATIENT IS NOW BACK IN BED RESTING. NO PAIN OR NASUEA NOTED. PATIENTS NG ON LWIS SCDS IN PLACE. NO NEEDS NOTED. CALL LIGHT IN REACH.
--- NOTE | 2019-04-18 04:42 | NUR ---
PATIENT RESTED ON AND OFF THROUGHOUT THE SHIFT. PATIENT IS NPO AT THIS TIME. NG TO LWIS. PATIENT IS A SBA. PATIENT IS ON RA. PATIENT HAS TEDHOSE ON BILAT LOW EXT. PATIENT HAS A MIDLINE, LEIGH PRESENT, OPEN TO AIR, AND C/D/I. PATIENT HAS RECEIVED PRN PAIN X2. PATIENT HAS DENIED NAUSEA. ABD IS DISTENDED, NOT FIRM, AND TENDER TO THE TOUCH. BOWEL TONES HYPOACTIVE. PATIENT IS AAOX3 AND USES CALL AMANDA CRUZ.
--- NOTE | 2019-04-18 06:36 | NUR ---
PATIENTS VITALS TAKEN AND RECORDED. INTAKE AND OUPUT REOCRDED. PATIENT IS RESTING IN BED. IV FLUIDS INCREASED PER ORDER. DR DONIS IN TO TO ASSES PT. PATIENTS NG TUBE REMAINS IN PLACE ON LWIS. PATIENT DENIES ANY PAIN. PATIENT ONLY COMPLAINS OF DISCOMFORT. PATIENT DENIES ANY FURTHER NEEDS. CALL LIGHT IN REACH.
--- NOTE | 2019-04-18 07:38 | NUR ---
PT AWAKE, A&OX4. NG TO LIS, BROWN GASTRIC DRAINAGE NOTED, TUBE PATENT. PT DENIES NASEA AND REPORTS IMPROVED ABD PAIN.
--- NOTE | 2019-04-18 10:46 | NUR ---
PT VISITING WITH FAMILY AT THIS TIME. PT DENIES NEEDS. NG INTACT, PATENT AND DRAINING APPROP.
--- NOTE | 2019-04-18 11:08 | NUR ---
ADMIN MORPHINE 4MG IVP FOR REPORTS OF 6/10 ABD PAIN.
--- NOTE | 2019-04-18 11:45 | NUR ---
PATIENT RESTING IN BED. PATIENT GOES TO WALK IN THE HALLWAY. ONE PERSON ASSISTING. PATIENT BACKS TO BED. CALL LIGHT WITHIN REACH. NO OTHER NEEDS AT THIS TIME
--- NOTE | 2019-04-18 12:06 | NUR ---
PT LAYING IN BED, VISITING WITH FAMILY. HE IS ALERT, ORIENTED AND JOKING. WILL CONTINUE TO FOLLOW
--- NOTE | 2019-04-18 12:29 | NUR ---
PT STATED HE HAD A BM AND ALSO RECTAL BLEEDING. LYNN BLOOD NOTED IN TOILET WITH DARK RED BLOOD CLOTS. EXTERNAL RECTAL EXAM DONE WITH SECOND RNJIAGR IN ROOM. ONE EXTERNAL HEMORRHOID NOTED. WITH SCANT AMOUNT OF BLOOD COMING OUT OF RECTUM. PT STATES HE HAS NO PAIN AT THIS TIME. CALLED DR. DONIS REGARDING THIS; NEW ORDER OBTAINED FOR HYDROCORDIZONE CREAM TO RECTUM BID. PT DENIES NEEDS. NO STOOL NOTED IN TOILET. PT IS OTHERWISE STABLE AT THIS TIME, RESP EVEN AND NON LABORED. NO S/S OF DISTRESS.
--- NOTE | 2019-04-18 13:56 | PATH ---
[facility] [address], [place] [address] Signed SPECIMEN(S): A RIGHT COLON CECUM SPECIMEN(S): B ANASTOMOSIS SPECIMEN SOURCE: A. RIGHT COLON CECUM B. ANASTOMOSIS CLINICAL HISTORY: Villous adenomatous polyp. Right colectomy. FINAL PATHOLOGIC DIAGNOSIS: A. 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 - Negative for invasive malignancy. - Tumor size 2.7 x 2.5 x 0.6 cm. - Margin: All well free of lesion. - Closest margin: Proximal margin at 9.6 cm from neoplasm. - Thirteen lymph nodes identified, negative for malignancy. B. Small bowel/colonic anastomosis tissue, excision: - Small intestinal and colonic mucosa, negative for malignancy. COMMENT: The patient had a previous biopsy of a cecal mass received at [facility] 02/21/2019 with a diagnosis of villoglandular adenoma ([id number]). EMILY:cml:C2NR MICROSCOPIC EXAMINATION: Histologic sections of all submitted blocks are examined by light microscopy. These findings, together with the gross examination, support the pathologic diagnosis. GROSS DESCRIPTION: Two specimens are received in two containers, labeled "CW." A. The specimen, labeled "CW, right colon and cecum," is received in formalin and consists of a portion of right colon and terminal ileum with an attached appendix and pericolonic adipose tissue. The right colon is 19.5 cm in length and has an average internal circumference of 6.5 cm. The terminal ileum is 7.6 cm in length and has an average internal circumference of 4.0 cm. The appendix measures 8.7 x 0.7 cm. The serosal surface is pink and focally congested with adherent red membranous tissue. Upon opening the cecum contains a 3.7 x 2.5 x 0.6 cm PATIENT NAME: DAVE JACKSON PATHOLOGY DATE OF : 50 REPORT #: [id number] PHYSICIAN: FARHANA PATHOLOGY PCP: ELIE ROSAS SOFTWARE ENGINEERING ASSOCIATE MANAGER REPORT IS CONFIDENTIAL AND NOT TO BE RELEASED WITHOUT AUTHORIZATION [facility] [address], [place] [address] Signed yellow-ye polypoid mass. This mass is located 17.0 cm from the distal resection margin, 9.6 cm from the proximal resection margin, and 9.5 cm from the vascular root resection margin. The mass does not grossly involve the appendiceal orifice or ileocecal valve. Sectioning through the mass reveals a loose adherence to the underlying muscularis propria. Extension into the muscularis propria is not grossly identified. No involvement of the adjacent pericolonic adipose tissue is grossly identified. The remaining mucosa is pink-ye and finely granular. The right colon has an average wall thickness of 0.9 cm. The mucosa of the terminal ileum is yellow-green and finely granular. The terminal ileum has an average wall thickness of 0.8 cm. The appendix is grossly unremarkable with a 0.1 cm lumen. The appendiceal wall has an average thickness of 0.4 cm. Upon dissection of the attached pericolonic adipose tissue 14 possible lymph nodes are grossly identified. Mid Level Clinician sections are submitted in 13 cassettes. Cassette summary: (A1) distal resection margin, shave (A2) proximal resection margin, shave (A3) vascular root resection margin, shave (A4) uninvolved large and small bowel (A5) appendix (A6-A8) mass to uninvolved bowel wall (A9) six possible lymph nodes, submitted whole (A10) five possible lymph nodes, submitted whole (A11) one possible lymph node, bisected (A12) one possible lymph node, bisected (A13) one possible lymph node, trisected. B. The specimen, labeled "CW, anastomosis," is received in formalin and consists of a 3.7 x 2.6 x 2.2 cm, unoriented portion of large bowel. The mucosal surface is pink-red with adherent membranous tissue and attached black suture material. The mucosal surface is yellow-ye and finely granular with the usual folding pattern. The specimen contains several staple lines. The mucosa surrounding the staple lines is pink and finely granular. No discrete mass lesions are grossly identified. The bowel wall has an average thickness of 0.7 cm. Mid Level Clinician sections are submitted in cassette (B1). FB (under the direct supervision of a pathologist) PATIENT NAME: DAVE JACKSON PATHOLOGY DATE OF : 50 REPORT #: [id number] PHYSICIAN: FARHANA PHILLIPS PCP: ELIE ROSAS SOFTWARE ENGINEERING ASSOCIATE MANAGER REPORT IS CONFIDENTIAL AND NOT TO BE RELEASED WITHOUT AUTHORIZATION [facility] [address] [place] [id number] Signed The Gross Description was prepared using a voice recognition system. The report was reviewed for accuracy; however, sound-alike word errors, addition and/or deletions may occur. If there is any question about this report, please contact Client Services. PERFORMING LABORATORY: The technical component was performed by [facility] [address] (Hepatology Physician: Fátima Beauchamp MD; CLIA# [id number]). [facility] [address] [place] [address] (Hepatology Physician: Stanislaw Richter MD; CLIA# [id number]). Diagnostician: Stanislaw Richter MD Pathologist Electronically Signed 04/18/2019 Copies: ~ PATIENT NAME: DAVE JACKSON PATHOLOGY DATE OF : 50 REPORT #: [id number] PHYSICIAN: FARHANA PHILLIPS PCP: ELIE ROSAS NP REPORT IS CONFIDENTIAL AND NOT TO BE RELEASED WITHOUT AUTHORIZATION
--- NOTE | 2019-04-18 15:31 | NUR ---
ADMIN MORPHINE 4MG IVP FOR REPORTS OF 7/10 ABD PAIN.
--- NOTE | 2019-04-18 18:58 | NUR ---
BLADDER SCAN COMPLETED; 462ML PER SCANNER. CALLED DR. DONIS AND OBTAINED NEW ORDER FOR PRN CARNEY IF NEEDED, AND TO START HOME MEDS FOR OXYBUTININ, FINASTRIDE AND FLOMAX.
--- NOTE | 2019-04-18 19:02 | NUR ---
CHARGE NURSE REPORT RECEIVED FROM JIGAR. PT WITH NO NEEDS AT THIS TIME.
--- NOTE | 2019-04-18 19:10 | NUR ---
RECEIVED REPORT FROM DAY SHIFT RN. PATIENT IS RESTING IN BED. NG TO LWIS. NO FURTHER NEEDS NOTED. CALL LIGHT IN REACH.
--- NOTE | 2019-04-18 20:40 | NUR ---
PATIENT ASSESMENT COMPLETED. PATIENT ASSISTED TO THE RESTROOM A SBA. PATIENT WAS ABLE TO VOID. PATIENT IS NOW BACK IN BED RESTING. PATIENTS EVENING MEDICATIONS GIVEN PER ORDER. PATIENTS NG IS NOW CLAMPED. PATIENT PROVIDED WITH SIPS OF WATER WITH MEDS. PATIENT IS RESTING IN BED WATCHING TV. PATIENT REMAINS NPO. CHLORASEPTIC SPRAY PRN PROVIDED. PATIENTS MIDLINE IS OPEN TO AIR, LEIGH PRESENT, WELL APPROXIMATED. PATIENTS ABD REMAINS DISTENDED AND TENDER TO PALPATION. PATIENT IS AAOX3. MP FURTHER NEEDS NOTED. CALL LIGHT IN REACH.
--- NOTE | 2019-04-18 22:05 | NUR ---
PATIENT IS RESTIGN IN BED WATCHING TV. PATIENTS NG HOOKED BACK UP TO LWIS. PATIENT RATES PAIN AT AN 6/10. PATIENT GIVEN PRN PAIN MEDICATION PER ORDER. PATIENTS SCDS IN USE. NO FURTHER NEEDS NOTED. CALL LIGHT IN REACH.
--- NOTE | 2019-04-18 23:19 | NUR ---
PATIENT IS RESTING IN BED WITH EYES CLSOED, RR 16. CALL LIGHT IN REACH.
--- NOTE | 2019-04-19 01:07 | NUR ---
PATIENT IS RESTING IN BED WITH EYES CLOSED, RR 17. CALL LIGHT IN REACH.
--- NOTE | 2019-04-19 02:09 | NUR ---
PATIENT IS RESTING IN BED WITH EYES CLOSED, RR 17. CALL LIGHT IN REACH. NG TO LWIS/
--- NOTE | 2019-04-19 03:10 | NUR ---
ASSISTED PRIMARY RN PLACE CARNEY TO PATIENT.
--- NOTE | 2019-04-19 03:10 | NUR ---
PATIENT ASSISTED TO THE RESTROOM A SBA. PATIENT SAT IN RESTROOM AND ATTEMPTED TO VOID FOR 30 MINUTES. PATIENT WAS ONLY ABLE TO VOID 50ML. PATIENT BLADDER SCANNED FOR GREATER THATN 698ML. PATIENT IS GROANING IN PAIN. PATIENT EDUCATED THAT A CARNEY NEEDED TO BE PLACED TO RELEIVE RETENTION. PATIENT AGREED. CARNEY PLACED PER ORDER. PATIENT TOLERATED ACTIVITY WELL. PATIENT IS RESTING IN BED. CARNEY IN PLACE AND DRAINING DARK YELLOW URINE. PATIENTS NG TO LWIS. PATIENTS SCDS ARE IN PLACE. PATIENT DENIES ANY NEEDS. NO PAIN OR NAUSEA NOTED. CALL LIGHT IN REACH.
--- NOTE | 2019-04-19 03:48 | NUR ---
CALL LIGHT ANSWERED. WARM BLANKET PROVIDED.
--- NOTE | 2019-04-19 04:44 | NUR ---
PATIENT RESTED WELL THROUGHOUT THE SHIFT. PATIENT IS NPO. NG IN PLACE ON LWIS. PATIENT HAS SCDS IN PLACE. PATIENT IS A SBA. PATIENT HAD CARNEY PLACED FOR RETENTION AND UNABLE TO VOID. PATIENT HAS MIDLINE INCISION THAT HAS LEIGH PRESENT, WELL APPORX, AND C/D/I. PATIENT HAS HYPOACTIVE BOWELS TONES. IV INFUSING PER ORDER. PRN PAIN MEDICATION X1. NO NAUSEA NOTED. PATIENT IS AAO X3 AND USES CALL LIGHT APPROPRIATELY. IS ENCOURAGED.
--- NOTE | 2019-04-19 06:26 | NUR ---
PATIENT GIVEN PRN PAIN MEDICATION PER ORDER FOR 5/10 PAIN IN HIS THROAT AND 3/10 PAIN IN HIS ABD. PATIENT DENIES ANY NAUSEA. NO FURTHER NEEDS NOTED. CALL LIGHT IN REACH.
--- NOTE | 2019-04-19 08:23 | NUR ---
STICKY DRESSING CHANGED ON NOSE TO HOLD NG TUBE IN PLACE, SUCTION TO WALL INTERMITTENT SUCTION. DRAINING GREEN FLUID. TOLERATING FAIR. SITTING UP ON SIDE OF BED FOR AUSCULTATION OF LUNGS. XRAY NOTIFIED PAITENT READY FOR SCHEDULED ABD XRAY. REPORT RECEIVED FROM BIOMEDICAL PHOTOGRAPHER.
--- NOTE | 2019-04-19 09:39 | NUR ---
NG TUBE SUCTION OFF SO PATIENT CAN SWALLOW HIS MORNING PILLS. WILL TURN BACK ON IN 1 HOUR.
--- NOTE | 2019-04-19 09:40 | NUR ---
VISITORS IN ROOM.
--- NOTE | 2019-04-19 13:53 | NUR ---
up walking in the hallways. down the long elliott and back to bed.
--- NOTE | 2019-04-19 14:22 | NUR ---
PT RESTING IN BED-ALERT, ORIENTED AND WATCHNG TV. PT HAS VISITORS-HE SEEMS TO HAVE AN ABUNDANCE OF FAMILY AND FRIENDS CARING FOR HIM. GOOD ATTITUDE, STILL WOULD LIKE TO BE ABLE TO SLEEP MORE. CLEAR LIQUIDS ONLY, AND HE JOKED THAT ALL HE CAN SEE OUT THE WINDOW IS A RESTAURANT! EXTENDED A BLESSING, WILL FOLLOW NEEDED
--- NOTE | 2019-04-19 16:53 | NUR ---
resting in bed, offered walking in the hallway, states would like to finish watching the news and I will check back with hime after 5pm.
--- NOTE | 2019-04-19 17:46 | NUR ---
up walking in the hallway, to bathroom and sat on toilet for about 10 minutes, states felt like needed to have BM and gas but didn't pass anything, back to bed.
--- NOTE | 2019-04-19 18:17 | NUR ---
Up walking x3 today in hallway, No BM or gas, hypoactive BT, steady on feet, Alert and Oriented. Urine catheter present, NG tube to LIWS.
--- NOTE | 2019-04-19 19:02 | NUR ---
CHARGE NURSE REPORT RECEIVED FROM SERGO. PT IN BED, TV ON. NO NEEDS.
--- NOTE | 2019-04-19 21:50 | NUR ---
PATIENT ASSESMENT COMPLETED. PATIENT IS RESTING IN BED WATCHING TV. PATIENT DENIES ANY PAIN OR NAUSEA. PATIENTS EVENING MEDICATIONS GIVEN PER ORDER. PATIENTS NG CLAMPED AT THIS TIME PER ORDER. PATIENTS ABD REMAINS DISTENDED AND TENDER. PATIENTS LEIGH ARE C/D/I, AND WELL APPROX. PATIENTS IV INFUSING PER ORDER. PATIENTS CARNEY EMPTIED. VITALS TAKEN AND RECORDED. PATIENT DENIES ANY NEEDS CALL LIGHT IN REACH.
--- NOTE | 2019-04-19 22:38 | NUR ---
RECEIVED REPORT FROM DAY SHIFT RN. PATIENT IS RESTING IN BED WATCHING TV. PATIENT DENIES ANY NEEDS AT THIS TIME. CALL LIGHT IN REACH.
--- NOTE | 2019-04-19 23:14 | NUR ---
PATIENTS NG HOOKED BACK UP TO LWIS. PATIENT DENIES ANY PAIN OR NAUSEA. NO FURTHER NEEDS NOTED. CALL LIGHT IN REACH. IV INFUSING PER ORDER. CARNEY IN PLACE.
--- NOTE | 2019-04-20 00:51 | NUR ---
PATIENT IS RESTING IN BED WITH EYES CLSOED, RR 16. CALL LIGHT IN REACH.
--- NOTE | 2019-04-20 01:23 | NUR ---
PATIENT CALLED AND REQUESTED PAIN MEDICATION. PATIENT GIVEN PRN PAIN MEDICATION PER ORDER. PATIENTS NG REMAINS ON LWIS. CARNEY IN PLACE DRAINING DARK YELLOW URINE. NO FURTHER NEEDS NOTED. CALL LIGHT IN REACH.
--- NOTE | 2019-04-20 03:21 | NUR ---
PATIENT REPOSITIONED IN BED. PATIENT RATES PAIN AT A 2/10. PATIENT DENIES THE NEED FOR PAIN MEDICATIONS AT THIS TIME. PATIENT DENIES ANY NAUSEA. PATIENT DENIES ANY FURTHER NEEDS. CALL LIGHT IN REACH.
--- NOTE | 2019-04-20 04:42 | NUR ---
PATIENT RESTED WELL THROUGHOUT THE SHIFT. PATIENT IS NPO. NG IN PLACE ON LWIS. PATIENT HAS SCDS IN PLACE. PATIENT IS A SBA. PATIENT HADS CARNEY IN PLACE AND OUTPUT IS ON LOW BUT QS. PATIENT HAS MIDLINE INCISION THAT HAS LEIGH PRESENT, WELL APPORX, AND C/D/I. PATIENT HAS HYPOACTIVE BOWELS TONES. IV INFUSING PER ORDER. PRN PAIN MEDICATION X1. NO NAUSEA NOTED. PATIENT IS AAO X3 AND USES CALL LIGHT APPROPRIATELY. IS ENCOURAGED.
--- NOTE | 2019-04-20 06:15 | NUR ---
PATIENTS VITALS TAKEN AND RECORDED. INTAKE AND OUPUT RECORDED. CARNEY EMPTIED AND CARNEY CARE COMPLETED. NG CONTINUES ON LWIS. PATIENT DENIES ANY PAIN OR NAUSEA. NO FURTHER NEEDS NOTED. CALL LIGHT IN REACH.
--- NOTE | 2019-04-20 07:00 | NUR ---
PATIENT SITTING IN BED, ALERT AND ORIENTED. NG TUBE IN PLACE, CONTINUES DRAINING. CARNEY IN PLACE, DARK URINE PRESENT IN BAG. REPORTS NO PAIN OR NAUSEA. NO FURTHER NEEDS AT THIS TIME, CALL LIGHT WITHIN REACH.
--- NOTE | 2019-04-20 09:23 | NUR ---
PATIENT TO SURGERY WITH MARCOS DE LEON.
--- NOTE | 2019-04-20 09:23 | NUR ---
AM MEDICATIONS NOT GIVEN DUE TO PATIENT LEAVING FOR SURGERY. PRE-OP CHECKLIST DONE, LR HUNG WITH STRAIGHT TUBING AND WIPE DOWN NOT DONE.
--- NOTE | 2019-04-20 13:52 | NUR ---
PT TAKEN TO OR FOR SURGERY. WILL CONTINUE TO FOLLOW
--- NOTE | 2019-04-20 14:28 | NUR ---
04/20/19 1428 Sandra Marie 1404-PATIENT ARRIVED TO PACU ROOM 127 CCU VIA BED. PATIENT REACTIVE TO VOICE OPENING EYES. 6L MASK RR EVEN. DRESSING TO ABDOMEN CDI. SR. NG TO LOW INTERMITTENT SUCTION GREEN/YELLOW LIQUID. OFFIRMEV INFUSING 1410-PATEINT AROUSES TO VERBAL STIMULI OPENS EYES DENIES PAIN OR NAUSEA. ORIENTED TO PLACE AND YEAR. XRAY CALLED. OFFIRMEV COMPLETED. 1425-XRAY COMPLETED AT BEDSIDE. PATIENT SLEEPING GRUNTING. RR EVEN.
--- NOTE | 2019-04-20 15:00 | NUR ---
PATIENT ARRIVED TO CCU ROOM 127. FAMILY IN WAITING ROOM. THIS RN AND DOCTOR IN TO MEET WITH PATIENTS FAMILY. REPORT RECIEVED FROM PACU STAFF. PATIENT IS ON 4L OXYMASK WITH SPO2 97%. PATIENT HAS A WEAK COUGH AT THIS TIME. RHONCHI NOTED. BOWEL TONES HYPOACTIVE/ABSENT. DRESSING TO MID ABD. CLEAN DRY AND INTACT. ABD IS TIGHT, BUT DOES HAVE SOME GIVE. PATIENT STATES PAIN IS "50/10" TO ABD. NG SUCTION TO LOW INT SUCTION. CARNEY PRESENT WITH NO URINE AT THIS TIME. WILL CONTINUE TO CLOSELY MONITOR.
--- NOTE | 2019-04-20 16:00 | NUR ---
PATIENT RESTING IN BED. MEDICATIONS ADMINISTERED. PATIENT PAIN IS BETTER AT THIS TIME. FMAILY AT THE BEDSIDE. PATIENT IS STILL A LITTLE GROGGY, BUT IS WAKING UP MORE AND ASKING MORE QUESTIONS. FAMILY ALL UPDATED ON PLAN OF CARE. URINARY CATHETER CHANGED TO A UROMETER BAG FOR CLOSE INTAKE AND OUTPUT. ABOUT 15MLS OUT AT THAT TIME. WILL CONTINUE TO CLOSELY MONITOR. SUCTION SET UP AT THE BEDSIDE FOR PATIENTS PERSONAL USE OF SPITTING SPUTUM INTO. VITALS STABLE. PATIENT HAS LAUGHING WITH STAFF AND MAKING JOKES. CALL LIGHT IN REACH.
--- NOTE | 2019-04-20 17:00 | NUR ---
PATIENT URINARY OUTPUT IS 0MLS FOR THIS HOUR. MD DONIS IS IN VISITING WITH PATIENT. UPDATED ABOUT LOW URINE OUTPUT. PER MD INCREASE FLUIDS TO 150MLS TOTAL BETWEEN LR AND TPN AMOUNT. TPN REMAINS AT 84MLS/HR, LR INCREASED TO 66MLS/HR. PER MD IF URINE OUTPUT REMAINS LOW/NO URINE WILL GIVE LR BOLUS OF 250MLS/HR OVER 4 HOURS. ABD DRESSING REMAINS C/D/I. PATIENT IS AWAKE VISITING WITH FAMILY AND WATCHING FOOTBALL. WILL CONTINUE TO CLSOELY MONITOR.
--- NOTE | 2019-04-20 18:00 | NUR ---
PATIENT URINE OUTPUT REMAINS 0MLS/HR.STARTED BOLUS PER VERBAL ORDERS. PATIENT PAIN IS WELL CONTROLLED AT THIS TIME. FAMILY AT BEDSIDE. PATIENT IS WATCHING FOOTBALL. PATIENT JOKING WITH STAFF AND STATES "I WANT A T-BONE STEAK AND A CIGARETTE". NO OTHER NEEDS AT THIS TIME. PATIENT IS AWAKE AND ALERT. CALL LIGHT IN REACH. WILL CONTINUE TO CLOSELY MONITOR.
--- NOTE | 2019-04-20 18:44 | NUR ---
BLADDER SCAN PREFORMED TO SEE IF IT SHOWED URINE SINCE PATIENT HAS HAD NO URINE OUTPUT FOR SEVERAL HOURS. BLADDER SCAN SHOWS APROX 200MLS. MOVED PATIENTS CATHETER AROUND AND PUSHED CATHETER UP TO Y OF CATHETER AND URINE OUTPUT NOW PRESENT IN CARNEY. URINE WILL ONLY FLOW IF CATHETER IS ALL THE WAY AT THE Y-SITE. WILL CONTINUE TO CLOSELY MONITOR URINE OUT. NO BOLUS AT THIS TIME. WILL CONTINUE TO CLSOELY MONITOR.
--- NOTE | 2019-04-20 18:50 | NUR ---
MINIMAL URINE OUTPUT SINCE ARRIVAL AT CCU. BOLUS IV FLUIDS WAS GIVEN. WITH MINIMAL IMPROVEMENT, A BLADDER SCAN INDICATED THE PRESENCE OF APPX. 220 ML IN BLADDER. WITH ADJUSTMENT OF CATHETER 200ML OF URINE WAS COLLECTED.
--- NOTE | 2019-04-20 19:15 | NUR ---
RECEIVED REPORT FROM MOISES NINA. pt IN 04/20 PAIN, PRN GIVEN PER REPORT. pt REPOSITIONED IN BED. REQUESTED TO BE LEFT ALONE AT THIS TIME. MIDLINE INCISION DRESSING CDI. CALL LIGHT WITHIN REACH.
--- NOTE | 2019-04-20 20:19 | NUR ---
ASSESSMENT DONE. pt REPORTED 5/10 PAIN. REQUESTED THAT CATHETER BE ADJUSTED, PROVIDED SOME RELIEF. URINE OUTPUT RECORDED. MIDLINE DRESSING CDI. pt REFUSED NIGHTLY MEDS (SEE MAR), EDUCATION DONE. NG TO LIS. NO REQUESTS AT THIS TIME. CALL LIGHT WITHIN REACH.
--- NOTE | 2019-04-20 21:34 | NUR ---
IN TO CHECK ON PATIENT. REPORTS PAIN LEVEL DOWN TO 3/10. CALL LIGHT WITHIN REACH.
--- NOTE | 2019-04-20 22:10 | NUR ---
UPDATED PHYSICIAN ON PAIN. NEW ORDERS ENTERED.
--- NOTE | 2019-04-20 22:20 | NUR ---
IV ABX GIVEN (SEE MAR). pt RESTING IN BED "THINKING" REPORTED THAT PAIN WAS "BETTER." QUESTIONS ANSWERED. CALL LIGHT WITHIN REACH.
--- NOTE | 2019-04-21 00:19 | NUR ---
pt CALLED. NG TUBE "DIDN'T FEEL RIGHT" FLUSHED, RETAPED TO NOSE. CLEARISH BROWN LIQUID DRAINING. SCDS ON. pt REPORTED PAIN "IS OKAY RIGHT NOW, YOU'LL KNOW WHEN IT'S NOT." ASSESSMENT DONE. NO FURTHER REQUESTS AT THIS TIME. CALL LIGHT WITHIN REACH.
--- NOTE | 2019-04-21 01:30 | NUR ---
CALL LIGHT ON. pt REPORTED "I FEEL LIKE I'M GOING TO THROW UP." NAUSEA MEDICAITON GIVEN (SEE MAR). NG TUBE DRAINING TO LIS. AFTER A MINUTE THE pt REPORTED THE FEELING HAD PASSED. ORAL CARE DONE. NG TUBE RESECURED. NO FURTHER REQUESTS AT THIS TIME. CALL LIGHT WITHIN REACH.
--- NOTE | 2019-04-21 03:23 | NUR ---
ROUNDED ON pt. RESTING WITH EYES CLOSED, RESPIRATIONS REGULAR AND UNLABORED. CALL LIGHT WITHIN REACH.
--- NOTE | 2019-04-21 04:00 | NUR ---
pt REPORTED HIS NG TUBE WAS "NOT WORKING" FLUSHED WELL, AUSCULTATED. pt REPORTED "IT SEEMS TO BE WORKING NOW" BOWEL TONES STILL HYPOACTIVE. ABD TIGHT. ATTEMPTED TO DRAIN CARNEY, LARGE AMOUNT OF URINE OUT. pt ASKED FOR BLADDER SCAN, DONE NO ML NOTED IN BLADDER. CARNEY BALLOON EMPTIED AND REFILLED, pt REPORTED NO CHANGE. LABS DRAWN. WILL CONTINUE TO MONITOR. TV REMOTE PROVIDED. ASSESSMENT DONE. CALL LIGHT WITHIN REACH.
--- NOTE | 2019-04-21 06:03 | NUR ---
pt STATED PAIN IS "OKAY." IV ABX INFUSING (SEE MAR). CARNEY DRAINING DARK URINE. CALL LIGHT WITHIN REACH.
--- NOTE | 2019-04-21 06:08 | OR ---
[facility] [address], [place] [address] Signed DATE OF OPERATION: 04/20/2019 SURGEON: Isabella Donis MD PREOPERATIVE DIAGNOSES: 1. Small bowel obstruction with anastomotic blockade. 2. Mild acute malnutrition. POSTOPERATIVE DIAGNOSES: 1. Small bowel obstruction due to foreshortened mesentery and kink with angulated bowel at the anastomosis. 2. Mild acute malnutrition. PROCEDURES: 1. Small bowel resection x1. 2. Partial colectomy x1. 3. Ileocolonic anastomosis (end to side), hand-sewn in 2 layers. 4. Placement of right IJ triple lumen catheter. 5. Physician directed ultrasound. ESTIMATED BLOOD LOSS: None. INDICATIONS: Kiana is a 69-year-old gentleman, who had come to us for endoscopy. He had a large sessile circular lesion in the cecum. It proved to be villous tissue. It was simply too large and removed safely with our endoscope. Consequently, he needed a right colectomy for definitive treatment and diagnosis. We had did his right colectomy on 04/14/2019. We used our routine stapled nrby-wy-owya ileocolic anastomosis. 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 Kiana had asked to start on clear liquids on postoperative day #1. We tried that and he had some mild distention the next day. We had advanced to full liquids and by the next day, it was clear. He was not going to tolerate liquids immediate after surgery. Because of his distention, he was uncomfortable. We did place an NG tube with return of clear bilious fluid. Also, he is not able to take his p.o. medications. He was having trouble with some urinary tension, so we had to place a Fitzgerald catheter as well. I had reviewed all this with Kiana and his daughter. I had reviewed the surgery with Kiana afterwards as well as his two sisters. His sister tells me she went through a similar surgery for a large polyp as well over in the [facility]. We repeated his blood Electronically Signed By: ISABELLA DONIS MD 04/21/19 0608 PATIENT NAME: KIANA JACKSON OPERATIVE REPORT DATE OF : 50 REPORT #: [id number] PHYSICIAN: ISABELLA DONIS MD PCP: ELIE ROSAS NP REPORT IS CONFIDENTIAL AND NOT TO BE RELEASED WITHOUT AUTHORIZATION [facility] [address], [place] [address] Signed work and his white count was normal. His abdominal x-ray showed some distention to the small bowel. Initially, he had air in the small bowel and the colon. However, he was not improving. He still had clear bilious NG tube output. He had diffuse tympany. A repeat abdominal x-ray showed air up to the anastomosis, but none in the colon. I had reviewed this with Kiana and his daughter and explained that we are going to have to go back to surgery. We reevaluated that area is given the findings. In addition, I explained to Kiana and his daughter, I thought it was scott at this point given his week of an n.p.o. status that we would place a triple-lumen catheter under ultrasound guidance and we could start TPN for him, although recovered from his second surgery. I had spoken to Kiana about this several times. I spoke to his daughter over the phone couple of times and I also spoke to his daughter preoperatively with Kiana in the room. We had reviewed the nature of the surgery along with its risks including, but not limited to bleeding, infection, scarring, change in contour of the skin, damage to bowel, anastomotic leak, incisional hernias, and other unforeseen comorbidities. We also reviewed placement of triple-lumen catheter. There is risk to that procedure including, but not limited to bleeding, infection, scarring, change in contour of the skin, pneumothorax requiring chest tube placement, and other unforeseen comorbidities. They had expressed understanding and wished to proceed. PROCEDURE NOTE: Kiana was taken into our operating room and placed in the supine position under general endotracheal tube anesthesia. He was given preoperative antibiotics. He was already on subcutaneous heparin along with SCDs. His Fitzgerald catheter was already in place with return of clear yellow urine. He had good peripheral IV access. He was then prepped and draped in usual sterile fashion. We opened his previous midline incision and entered the abdomen without difficulty. Of course, we found his entire small bowel with air fluid levels. As we approached the anastomosis in the proximal transverse colon, we could see that it was kinked and pulled over itself 180 degrees and therefore, it was not allowing any of the air for fluid through. The two staple lines were perfectly intact. I could palpate the rind-jf-uvic anastomosis and it was around 3 cm in length. However, with the kink due to the foreshortened mesentery and flipping of that piece of small bowel simply would not allow the fluid or air through. We initially thought we could add a few stitches to the crotch and bring that bowel back. While we found that, it continued to do that and we realized that the mesentery was quite shortened and this was not going to work. Consequently, we had to abandon the concept of the sbao-xj-hsqx anastomosis, which is our usual practice. We decided to divide the very end of the ileum and the very end of colon. Both were divided with the help of linear JAMIN stapler. The mesentery of the small bowel and colon were divided between Pean clamps and 0 Vicryl ties. This gave us fresh area of small bowel and the colon for anastomosis. We were able to sweep the ileum out in a gentle curve and perform a side to end anastomosis in 2 layers with Vicryl and silk sutures. We closed the mesenteric rent with a running 0 Vicryl suture. In the meantime, we had opened the corner of the Electronically Signed By: ISABELLA DONIS MD 04/21/19 0608 PATIENT NAME: KIANA JACKSON OPERATIVE REPORT DATE OF : 50 REPORT #: [id number] PHYSICIAN: ISABELLA DONIS MD PCP: ELIE ROSAS NP REPORT IS CONFIDENTIAL AND NOT TO BE RELEASED WITHOUT AUTHORIZATION [facility] [address], [place] [address] Signed small bowel and completely ran the small bowel from the ligament of Treitz all the way to the terminal ileum to evacuate all the air and the liquid, so in that way we were able to return the small bowel back to the abdomen. We used several liters of warm antibiotic saline solution to copiously irrigate and suction out the abdomen until completely clear. We re-examined the area of the proximal transverse colon anastomosis after all the bowel was in place and felt good about its position. The omentum was then brought down over the small bowel. The mesentery was then reapproximated with interrupted ipzuah-hw-[id number] and simple #1 PDS sutures. We injected local anesthetic into the abdominal wall. The wound was irrigated and suctioned out until clear. The dermis was reapproximated with interrupted 3-0 subcuticular Monocryl sutures. The skin edges were reapproximated with fernando. Intraoperatively, we did palpate the NG tube in the stomach. After this, dry gauze and tape were applied. The entire field was then taken down. Kiana was left under general endotracheal tube anesthesia. He was placed in slight Trendelenburg position and the entire right neck and chest wall were prepped and draped in usual sterile fashion. I had gone out and completely re-scrubbed and re-gowned. We then used our ultrasound to locate the internal jugular vein and carotid artery. We were able to observe the needle passed directly through the skin into the vein itself with return of nonpulsatile dark venous blood. The wire was able to feed without any resistance whatsoever. The track was easily dilated without any resistance and the dilator traveled in the correct direction. A triple-lumen catheter was then inserted up to 16 cm and held at the level of neck with an interrupted silk suture. All ports were able to draw and flush quite readily. The hub of the triple-lumen catheter was then held on the neck with interrupted silk sutures. Plastic occlusive dressing was applied per nursing staff. After this, Kiana was weaned from his anesthesia, extubated in the OR, and taken to the ICU in stable condition. Isabella Donis MD ALB/MODL /[id number] cc: MD Jen Mcghee MD Electronically Signed By: ISABELLA DONIS MD 04/21/19 0608 PATIENT NAME: KIANA JACKSON OPERATIVE REPORT DATE OF : 50 REPORT #: [id number] PHYSICIAN: ISABELLA DONIS MD PCP: ELIE ROSAS NP REPORT IS CONFIDENTIAL AND NOT TO BE RELEASED WITHOUT AUTHORIZATION [address] [address] Signed Copies: ISABELLA DONIS MD ~ Electronically Signed By: ISABELLA DONIS MD 04/21/19 0608 PATIENT NAME: KIANA JACKSON OPERATIVE REPORT DATE OF : 50 REPORT #: [id number] PHYSICIAN: ISABELLA DONIS MD PCP: ELIE ROSAS NP REPORT IS CONFIDENTIAL AND NOT TO BE RELEASED WITHOUT AUTHORIZATION
--- NOTE | 2019-04-21 07:30 | NUR ---
PATIENT SHIFT REPORT RECEIVED FROM PEGGER DOBBY LOOMS RN. PATIENT RESTING IN BED AT THIS TIME WITH CALL LIGHT IN REACH. PATIENT IS WATCHING TV. PATIENT REMAINS ON LOW INT. SUCTION TO NG TUBE WITH GREEN BILE PRESENT. CARNEY IN PLACE. WILL CONTINUE TO CLOSELY MONITOR.
--- NOTE | 2019-04-21 08:45 | NUR ---
PATIENT SHIFT ASSESSMENT COMPLETED. PATIENT IS RESTING IN BED IN A SEMI-FOWLERS POSITION. PATIENT HAD EPPISODE OF NAUSEA THIS AM. MORE BILE COLORED OUTPUT IN NG TUBE AND SUCTION THIS MORNING. PATIENT IS USING SUCTION CATHETER TO SIT SPUTUM INTO WELL. PATIENTS BREATH SOUNDS CLEAR AND PATIENT IS ON RA WITH SPO2 98%. BOWEL TONES ARE ABSENT. ABD REMAINS EXTENDED AND TIGHT AND TENDER WITH PALPITATION. PATIENTS PAIN IS TOELRABLE AT THIS TIME. MIDLINE INCISION DRESSING IS CLEAN DRY AND INTACT. CARNEY CATH TUBING IS POSITIONAL. CONCENTRATED URINE NOTED IN UROMETER. PATIENT DENEIS ANY NEEDS AT THIS TIME, MEDICATIONS ADMINISTERED. CALL LIGHT IN REACH. WILL CONTINUE TO CLOSELY MONITOR.
--- NOTE | 2019-04-21 10:28 | NUR ---
PATIENT RESTING IN BED. REPOSITIONED FOR COMFORT. PATIENT IS WATCHING TV. TREE TAPPING LABORER SANTOSH IN AND ASSISTED PATIENT WITH AM CARES. ASSISTED WITH ORAL CARE AND PROVIDED A WASH CLOTH TO WASH FACE AND HANDS. WILL ASSIST PATIENT WITH BED BATH LATER TODAY. PATIENT EDUCATED ON PLAN OF CARE AND IS RECEPTIVE TO PLAN. WILL ENCOURAGE ROM AND MOVING AROUND MORE TODAY. PT EVAL IN FOR PATIENT. WILL CONTINUE TO CLOSELY MONITOR.
--- NOTE | 2019-04-21 11:30 | NUR ---
PATIENT STOOD EARLIER WITH PHYSICAL THERAPY AT THE BEDSIDE. LINEN CHANGED. PATIENT BACK TO BED AND REFUSED TO GET UP TO THE CHAIR. EDUCATED ABOUT PNEUMONIA AND THE IMPORTANCE OF MOVING AND CHANGING POSITIONS TO HELP PREVENT PNEUMONIA. WILL CONTINUE TO CLSOELY MONITOR. SCDS BACK ON PATIENT. WILL CONTINUE TO CLSOELY MONITOR.
--- NOTE | 2019-04-21 12:10 | NUR ---
PATIENT IN BED. GAVE PRN TORADOL AND PHENERGAN FOR PAIN AND NAUSEA. PATIENT IS NOW RESTING IN BED. PATIENT DENIES ANY NEEDS AT THIS TIME. CALL LIGHT IN REACH. WILL CONTINUE TO CLOSELY MONITOR.
--- NOTE | 2019-04-21 12:24 | NUR ---
PT TRANSFERRED TO CCU FOLLOWING SURGERY. HE HAD A VISITOR IN, JUST SAID NICHOLE. HE SAID HE WAS IN PAIN AND THAT THE NG TUBE WAS WAS STILL IN AND I REMINDED HIM IT WAS THERE FOR A REASON. HE CHUCKLED-GAVE A BLESSING. WILL FOLLOW NEEDED
--- NOTE | 2019-04-21 13:29 | PATH ---
[facility] [address] [place], [place] [address] Signed SPECIMEN(S): A ILEOCOLONIC ANASTOMOSIS SPECIMEN SOURCE: A. ILEOCOLONIC ANASTOMOSIS CLINICAL HISTORY: Anastomosis blockage of bowel - free air in small bowel. Right colectomy. FINAL PATHOLOGIC DIAGNOSIS: Ileocolonic anastomosis, excision: - Anastomosis: Submucosal edema, focal fibrosis, mild acute and chronic inflammation through muscular wall at sutured anastomosis. - Serosal surface with focal acute and chronic inflammation. - One small area of surface mucosa ulceration/denudation. - Margins of excision free of acute inflammation. - Negative for malignancy and atypia. LJA:cml:C2NR MICROSCOPIC EXAMINATION: Histologic sections of all submitted blocks are examined by light microscopy. These findings, together with the gross examination, support the pathologic diagnosis. GROSS DESCRIPTION: The specimen, labeled "CW, ileocolonic anastomosis," is received in formalin and consists of a 7.0 cm in length x 3.0-5.5 cm in internal circumference, unoriented and previously opened segment of bowel with two open resection margins. The serosa is ye-red with adherent ye-white exudate. No discrete lesions are identified. The resection margins are differently inked and the specimen is further opened to show ye-red and edematous mucosa with a 6.0 cm ye-green staple line consistent with a previous anastomosis located within 2.5 cm of the nearest resection margin. No other discrete lesions are identified. Operations Officer Trust Department sections are submitted as follows: (A1) resection margins, en face (A2) mucosa on either side of anastomosis line (A3) anastomosis AR (under the direct supervision of a pathologist) The Gross Description was prepared using a voice recognition system. The report was reviewed for accuracy; however, sound-alike word errors, addition PATIENT NAME: DAVE JACKSON PATHOLOGY DATE OF : 50 REPORT #: [id number] PHYSICIAN: FARHANA PHILLIPS PCP: ELIE ROSAS GRADER MARKER REPORT IS CONFIDENTIAL AND NOT TO BE RELEASED WITHOUT AUTHORIZATION [facility] [address] [address] Signed and/or deletions may occur. If there is any question about this report, please contact Client Services. PERFORMING LABORATORY: The technical component was performed by [facility], [address] [place] [id number] (Pediatric Rn: Fátima Beauchamp MD; CLIA# [id number]). [facility], [address] [place] [id number] (Pediatric Rn: Stanislaw Richter MD; CLIA# [id number]). Diagnostician: Stanislaw Richter MD Pathologist Electronically Signed 04/21/2019 Copies: ~ PATIENT NAME: DAVE JACKSON PATHOLOGY DATE OF : 50 REPORT #: [id number] PHYSICIAN: FARHANA PHILLIPS PCP: ELIE ROSAS NP REPORT IS CONFIDENTIAL AND NOT TO BE RELEASED WITHOUT AUTHORIZATION
--- NOTE | 2019-04-21 14:00 | NUR ---
PATIENT RESTING IN BED WITH FAMILY AT BEDSIDE. PATIENT IS LAUGHING WITH FAMILY. PATIENT DENEIS ANY NEEDS A THIS TIME. FAMILY UPDATED ON PLAN OF CARE. ALL QUESTIONS ANSWERED. WILL CONTINUE TO CLOSELY MONITOR.
--- NOTE | 2019-04-21 15:47 | NUR ---
PATIENT RESTING IN BED WITH FAMILY AT BEDSIDE. FAMILY IS VERY INTERACTIVE. PATIENT IS JOKING AND LAUGHING WITH FAMILY. TPN CONTINUES AT 84MLS/HR. ASSESSMENT COMPLETED AND REMAINS UNCHANGED FROM PRIOR ASSESSMENT. BOWEL TONES ABSENT. NG TUBE TO LOW INTERMINTENT SUCTION. BILE LOOKING DRAINAGE NOTED IN SUCTION CANISTER. CARNEY DRAINING YELLOW/CONCENTRATED URINE. NO OTHER ISSUES AT THIS TIME. WILL CONTINUE TO CLOSELY MONITOR.
--- NOTE | 2019-04-21 17:38 | NUR ---
CALLED MD DONIS TO UPDATE ABOUT PATIENTS CONDITION THROUGHOUT THE DAY. UPDATED THAT PATIENT HAS HAD 1800MLS OF GREEN/BILE COLORED CONTENTS OUT THROUGH NG TUBE THROUGHOUT MY SHIFT TODAY. PATIENT HAS HAD EPISODES OF NAUSEA CONTROLLED WELL WITH PRN NAUSEA MEDICATION. NO NEW ORDERS. WILL CONTINUE TO CLOSELY MONITOR. PATIENT RESTING IN BED AT THIS TIME WITH FAMILY AT THE BEDSIDE. WILL CONTINUE TO CLOSELY MONITOR.
--- NOTE | 2019-04-21 18:36 | NUR ---
PATIENT RESTING IN BED AT THIS TIME. HAVE CONTINUED TO ENCOURAGE PATIENT TO SHIFT HIPS THROUGHOUT THE DAY AND CHANGE POSITION. SCDS IN PLACE. CALL LIGHT IN REACH. FAMILY HAS LEFT AT THIS TIME. PATIETN DENIES NAUSEA AND PAIN IS TOELRABLE AT THIS TIME. PATIENT DENEIS PASSING GAS. WILL CONTINUE TO CLSOELY MONITOR.
--- NOTE | 2019-04-21 19:30 | NUR ---
REPORT REC'D FROM MAICO DE LEON. PT REPORTS FEELING BLOATED AND NAUSEATED. NGT WITH GREEN DRAINAGE. WILL MEDICATE PER MD ORDERS. CALL LIGHT IN REACH.
--- NOTE | 2019-04-21 22:00 | NUR ---
PT REPOSITIONED IN BED. HOB 30 DEGREES. STATES NAUSEA AND PAIN ARE "OK". APROX 100ML OF GREEN DRAINAGE NOTED TO NGT CANISTER. PT DENIES NEEDS. CALL LIGHT IN REACH.
--- NOTE | 2019-04-21 23:22 | NUR ---
PT RESTING IN BED, EYES CLOSED. RESP EVEN AND UNLABORED. CALL LIGHT IN REACH.
--- NOTE | 2019-04-22 00:18 | NUR ---
PT EYES CLOSED. RESP EVEN AND UNLABORED. HYPOACTIVE BOWELTONES NOTED TO RLQ. ABD REMAINS FIRM AND DISTENDED. NGT WITH DECREASED BILIOUS OUTPUT. WILL CONT TO MONITOR AND ASSESS. CALL LIGHT IN REACH
--- NOTE | 2019-04-22 02:00 | NUR ---
PT EASILY AROUSABLE. BLOOD SUGAR CHECK DONE. PT STATES "I AM OK". DENIES NEEDS AT THIS TIME. CALL LIGHT IN REACH.
--- NOTE | 2019-04-22 04:41 | NUR ---
OFFERED TO TURN PT TO SIDE TO PREVENT SKIN BREAKDOWN. PT DECLINED STATING IT WOULD BE TOO UNCOMFORTABLE. MEDICATED WITH PRN PAIN MEDS. WILL RE-ATTEMPT. CALL LIGHT IN REACH. PT DENIES FURTHER NEEDS AT THIS TIME.
--- NOTE | 2019-04-22 07:00 | NUR ---
pt up to chair x1 assist with fww. pt chun well. states is "feeling a little better". Call light in reach. NGT with 500ml bilious drainage when pt stood. Dr. Benedict on floor and notified of UOP and NGT output.
--- NOTE | 2019-04-22 07:30 | NUR ---
REPORT RECIEVED. SITTING UP IN CHAIR. REPOSITIONED IN CHAIR. 700 ML OF BILE COLORED FLUID NOTED IN SUTION CONTAINER FROM NG NOTED. TALKED WITH PATIENT ABOUT PLAN OF CARE FOR DAY, IS UNDERSTANDING.
--- NOTE | 2019-04-22 08:45 | NUR ---
BACK TO BED WITH ASSIST. INCREASED SHORTNESS OF BREATH WITH ACTIVITY. IS USING ORAL SUCTION PRN. SPONGE BATH GIVEN WHEN SITTING AT BEDSIDE. NG SUCTION CHANGED FOR 875 ML BILE LIKE CONTENTS.
--- NOTE | 2019-04-22 10:38 | NUR ---
SLEEPING, NO DISTRESS NOTED.
--- NOTE | 2019-04-22 11:00 | NUR ---
AWAKE, SEVERAL FAMILY/FRIENDS ARE IN ROOM. PATIENT C/O INCREASED PAIN. TORDOL 15 MG IV GIVEN. PATIENT DENIES NAUSEA.
--- NOTE | 2019-04-22 12:50 | NUR ---
AMBULATED IN [place] WITH ASSIST OF PHYS THERAPY AND RN. PATIENT C/O INCREASED SHORTNESS OF BREATH WITH EXERTION. DID STOP DURING WALK A COULPE OF TIME TO REST. THEN BACK TO BED W/O INCIDENT.
--- NOTE | 2019-04-22 15:30 | NUR ---
DR. DONIS UPDATED ON NG OUTPUT AND U/O. ORDERS RECIEVED TO INFUSE LR AT 250 ML/HR FR 4 HRS THEN TOTAL IVF TO 150.
--- NOTE | 2019-04-22 16:00 | NUR ---
ASSESSMENT UNCHANGED. HAS UPPER AIRWAY NOISE. CONTINUES TO USE ORAL SUCTION PRN.SCD'S ON.
--- NOTE | 2019-04-22 17:00 | NUR ---
C/O INCREASED PAIN AND NAUSEA. NG REMAINS PATENT. TORDOL 15 MG IV GIVEN FOR PAIN AND 8 MG ZOFRAN FOR NAUSEA.
--- NOTE | 2019-04-22 17:50 | NUR ---
ABD DRESSING DC'D. LEIGH ARE INTACT NO DRAINAGE NOTED.
--- NOTE | 2019-04-22 18:00 | NUR ---
OOB, AMBULATED FROM ROOM 127 TO ROOM 128THEN NEEDED TO SIT AND COULDN'T GO ANY FUTHER. IS WITH INCREASED SHORTNESS OF BREATH. STATES HE FEELS ALITTLE LIGHTHEADED. USED CHAIR TO TAKE PATIENT BACK INTO ROOM, THEN RETURN TO BED. O2 AR 2 L O2 SAT 89.
--- NOTE | 2019-04-22 18:30 | NUR ---
TPN INFUSING AT 84 ML/HR. IVF (LR) INFUSING AT 250 ML/HR. PATIENT IS SITTING UP IN BED WATCHING TV. NO FUTHER CHANGES.
--- NOTE | 2019-04-22 19:09 | NUR ---
REPORT TO NEXT SHIFT, NO FUTHER CHANGES. O2 REMAINS AT 2 L FOR NOW.
--- NOTE | 2019-04-22 20:00 | NUR ---
RECEIVED REPORT AT 1900. PT WAS IN BED SLEEPING. V/S AT THIS TIME ARE WDL UPPER LOBES ARE COARSE AND LOWER LOBES ARE DIMINISHED. PT DOES TAKE SHALLOW BREATHS HOWEVER. ABD IS STILL FIRM, TENDER AND VERY DISTENDED. LUQ HAS ACITIVE BOWEL TONES, RUQ HAS HYPOACTIVE SOUNDS, RLQ AND LLQ HAVE NO BOWEL TONES PRESENT AT ALL. NG TUBE WAS FLUSHED WITH ONLY 20MLS OF TAP WATER. PT WAS NOT ABLE TO TOLERATE ANYMORE THAN THAT. THERE IS STILL MUCH GREEN DRAINAGE COMING FROM THE NG TUBE. ABD MIDLINE INCISION IS GREEN LUMBER GRADER, WELL APPROXIMATED AND DRY. PAIN AT THIS TIME IS WELL CONTROLLED. WILL CONTINUE TO MONITOR.
--- NOTE | 2019-04-22 21:31 | NUR ---
AT AROUND 2120 PT HAD A BM CONSISTING OF DARK LYNN BLOOD ABOUT 75MLS WORTH. MD DONIS WAS CALLED BUT NO NEW ORDERS WERE RECEIVED. WILL CONTINUE TO MONITOR AND CALL MD DONIS AGAIN IF NEEDED.
--- NOTE | 2019-04-22 23:00 | NUR ---
PT AT THIS TIME HAS NAUSEA AND PAIN 5/10. PRN TORADOL AND ZOFRAN TO BE GIVEN.
--- NOTE | 2019-04-23 01:00 | NUR ---
PT AT THIS TIME IS SLEEPING. V/S ARE WDL. NO CHANGES NOTED SO FAR.
--- NOTE | 2019-04-23 02:55 | NUR ---
V/S ARE WDL SO FAR. NG TUBE OUTPUT FOR 0200 WAS 150MLS. PAIN IS TOLERABLE STATED BY PT. PT AT TIMES STILL DOES HAVE SOME NAUSEA PRESENT. PT SO FAR HAS NOT HAD ANY FLATUS. WILL CONTINUE TO MONITOR.
--- NOTE | 2019-04-23 04:45 | NUR ---
V/S SO FAR ARE WDL. PT DESATS TO UPPER 80'S RA EVEN WHEN JUST ASKED TO LEAN FORWARD FOR LUNG AUSCULTAION. ALL LOBES AT THIS TIME HAVE RALES PRESENT. PT STILL HAS A LARGE AMOUNT OF SPUTUM PRODUCTION. SPUTUM IN CONTAINER IS PINKISH IN COLOR. NG TUBE IS STILL PUTTING OUT. NO CHANGES THERE. ABD SOUNDS AT THIS TIME ARE ABSENT IN ALL QUADRANTS, ABD IS FIRM AND JUST DISTENDED AT START OF SHIFT. ABD MIDLINE INCISION IS TOMASZ AND DRY. PT DENIES N/V AND PAIN AT THIS TIME. NO PERIPHERAL EDEMA NOTED MORNING LABS HAVE BEEN DRAWN FROM RIGHT IJ. A HEPARIN ORDER IS NEEDED. SALINE LOCKED AT THIS TIME. 5MLS WERE WASTED. BLOOD OBAINED FROM THIS SITE HAD WHITE PARTICLES PRESENT IN BLOOD (CHOLESTEROL)? PT ALSO NEEDED A BREAK FROM SCD'S. NO OTHER CONCERNS NOTED AT THIS TIME.
--- NOTE | 2019-04-23 07:30 | NUR ---
REPORT RECIEVED. PATIENT IS RESTFUL IN BED. DENIES PAIN. PATIENT IS UNDERSTANDING OF NPO STATUS. DENIES NAUSEA. OSTOMY BAG INTACT. LIQUID STOOL NOTED.
--- NOTE | 2019-04-23 07:30 | NUR ---
REPORT RECIEVED. PATIENT IS IN BED. STATES IT FELT LIKE A LONG NIGHT. MOANING. C/O PAIN IN LEFT SIDE OF ABD. TALKING ABOUT THE BLOODY STOOL HE HAD LAST NIGHT. STATES HE FEELS WORSE TODAY. TPN INFUSING TO RIJ. SCD'S ON. NG TO LCS.
--- NOTE | 2019-04-23 08:00 | NUR ---
ASSESSMENT DONE. UP TO COMMODE TO EXPELL APPROX 200 ML OF DARK RED STOOL. DR. DONIS IS HERE AND AWARE. IS WITH INCREASED SHORTNESS OF BREATH WITH EXERTION. MID ABD INCISION IS INTACT WITH LEIGH. ORDERS RECIEVED. PATIENT IS AWARE OF PLAN OF CARE FOR DAY. BED LINE CHANGED AND SPONGE BATH GIVEN WHILE PATIENT ON COMMODE.
--- NOTE | 2019-04-23 09:00 | NUR ---
RESTFUL AT THIS TIME.
--- NOTE | 2019-04-23 09:30 | NUR ---
FENTANY 50 MCG IV GIVEN FOR PAIN.
--- NOTE | 2019-04-23 14:30 | NUR ---
C/O INCREASED MID ABD PAIN. ASKED PATIENT IF IT FELT LIKE GAS PAIN.
--- NOTE | 2019-04-23 14:40 | NUR ---
FENTANYL 50 MCG IV GIVEN FOR C/O PAIN IN MID ABD. NG SUCTION CONTAINER CHANGED OUT AT 1400. NO GASTRIC CONTENTS NOTED SUCTION CONTAINER. NG IRRIGATED WITH 10 ML WATER PATIENT HEN HAD SMALL AMOUNT OF GASTRIC CONTENTS OUT MOUTH. ABD REMAINS DISTENTED.
--- NOTE | 2019-04-23 16:00 | NUR ---
ASSESSMENT DONE. NO DRAINAGE NOTED IN NG SUCTION . NGT IRRIGATED, CONTINUE W/O ANY DRIANAGE TO SUCTION AFTER IRGATION OF NGT. ABD VERY DISTENDED. DENIES NAUSEA.
--- NOTE | 2019-04-23 16:20 | NUR ---
NG REPOSITIONED AND RETAPED. CONTINUE WITTHOUT DRAINAGE. IS MORE UNCOMORTABLE NOW.
--- NOTE | 2019-04-23 16:30 | NUR ---
C/O NAUSEA. ZOFRAN 8 MG IV GIVEN.
--- NOTE | 2019-04-23 16:50 | NUR ---
C/O FEELING BAD ALL OVER. FENTANYL 50 MCG IV GIVEN. NO DRAINAGE NOTED IN NG SUCTION
--- NOTE | 2019-04-23 18:00 | NUR ---
DR. DONIS UPDATED ON PATIENT VIA PHONE. ORDERS RECIEVED TO REPLACE NG TUBE.
--- NOTE | 2019-04-23 18:10 | NUR ---
NG DC'D THEN FENTANYL 100 MCG GIVEN AND NG REPLACED WITH RETURN OF GREENISH CONTENTS. PATIENT TOLERATED WELL. PORT CHEST XRAY ORDERED.
--- NOTE | 2019-04-23 19:24 | NUR ---
REPORT TO NEXT SHIFT.
--- NOTE | 2019-04-23 19:37 | NUR ---
RECEIVED REPORT AT 1900, FOUND PT AWAKE IN BED. NOT FEELING TOO GOOD STATED BY PT. PT HOWEVER DID NOT HAVE ANY NEEDS OR CONCENRN AT THAT TIME.
--- NOTE | 2019-04-23 20:29 | NUR ---
BP ELEVATED AT 144/77 (93). OTHER V/S ARE WDL. PT DENIES N/V AT THIS TIME. PT STATED THAT HE WAS HAVING SOME PAIN. ALL LOBES ARE CLEAR AT THIS TIME WITH THE LEFT SIDE BEING DIMINISHED. ABD SOUNDS ARE ABSENT, ABD IS MORE DISTENDED THAN LAST NIGHT BUT NOT REALLY FIRMER. HOWEVE ABD IS STILL FIRM TO TOUCH. PT DENIES PASSING FLATUS STILL AT THIS TIME. CARNEY OUTPUT HAS INCREASED FOR DAY SHIFT. URINE COLOR IS STILL TEA LIKE BUT NOT DARK. NO PERIPHERAL EDEMA NOTED. OVERALL STRENGTH IS +4. WILL CONTINUE TO MONITOR.
--- NOTE | 2019-04-23 22:12 | NUR ---
PT NEEDED PRN FENANYL 50MCG FOR PAIN 10/19. PT STILL HAS A LOT OF PRESSURE IN HIS ABDOMEN. URINE OUTPUT IS ADEQUATE SO FAR. NG TUBE HAS DECREASED SINCE LAST NIGHT. AT THIS TIME BILE LOOKING OUTPUT IS NOTED AGAIN. WILL CONTINUE TO MONITOR. NO FLATUS OF YET.
--- NOTE | 2019-04-23 23:52 | NUR ---
PT AT THIS TIME APPEARS TO BE SLEEPING. V/S WDL OVERALL. NO NEW CONCERNS NOTED.
--- NOTE | 2019-04-24 00:22 | NUR ---
PT JUST CALLED OUT FOR NAUSEA AROUND 0000. 8MG IV PRN ZOFRAN WAS GIVEN. THERE WAS NO CHANGE FOR THE BETTER NOTED WITH SECOND ASSESSMENT AT 0000. BOWEL TONES ARE ABSENT, ABD IS FIRM DISTENDED AND TENDER. INCISION IS WDL, APRICOT WASHER AND DRY. URINE OUTPUT IS STILL ADEQUATE. NG TUBE OUTPUT BACK TO BILE AT THIS TIME TEMP AT 0000 WAS 99.4 F.
--- NOTE | 2019-04-24 02:39 | NUR ---
PT WAS ASLEEP UNTIL A LITTLE BIT AGO. PAIN AT THIS TIME IS A 6/10 ANOTHER DOSE OF PRN FENTANYL WAS GIVEN PER ORDER. OVERALL PT STATUS IS UNCHANGED. V/S WDL ON MON.
--- NOTE | 2019-04-24 04:45 | NUR ---
ABD SOUNDS AT THIS TIME ARE STILL ABSENT, ABDOMEN IS STILL VERY FIRM AND DISTENDED. ABD MIDLINE INCISION IS TOMASZ AND DRY WELL WELL APPROXIMATED. PT DENIES FLATUS. LUNG LOBES UNCHANGED. V/S WDL SO FAR. PAIN AT THIS TIME IS 7/10, PRN FENTANYL TO BE GIVEN. IJ CENTRAL LINE DRESSING WAS CHANGED SINCE THE OLD DRESSING STARTED TO COME OFF EXPOSING THE BIO-PATCH. PERIPHERAL IV SITED WAS D/C DUE TO INFILTRATION.
--- NOTE | 2019-04-24 07:30 | NUR ---
REPORT RECIEVED. DR. DONIS HERE TO SEE PATIENT. DR. DONIS TALKED WITH PATIENT ABOUT POST-OP COURSE. PATIENT NEEDS REINFORCEMENT REGARDING THIS .
--- NOTE | 2019-04-24 08:00 | NUR ---
ASSESSMENT DONE. TPN INFUSING. CARNEY CATH IS PATENT. NG TO LIS WITH GREENISH CONTENTS (BILE LIKE) NOTED. FENTANLY 50 MCG IV GIVEN FO PAIN, ZOFRAN 8 MG IV GIVEN FOR NAUSEA. ROUTINE MEDICATIONS GIVEN.
--- NOTE | 2019-04-24 10:30 | NUR ---
FENTANYL 50 MCG IV GIVNE FO PAIN. PATIENT IS READY TO AMBULATE TO SHOWER.
--- NOTE | 2019-04-24 11:00 | NUR ---
TOLERATED SHOWER WELL. AMBULATED FROM SHOWER TO ROOM USING WALKER.
--- NOTE | 2019-04-24 11:46 | NUR ---
PT APPEARS TO BE IN GOOD SPIRITS, ALERT AND JOKING WITH MOISES ALMONTE. PT SAID HE FEELS MUCH BETTER ABOUT HIS CARE PLAN AFTER TALKING WITH DR OSULLIVAN AM. PT IS EXCITEDLY AWAITING "BOWEL TONES"! REQUESTED PRAYER, WILL FOLLOW NEEDED
--- NOTE | 2019-04-24 12:00 | NUR ---
ASSESSMENT DONE. LUNGS WITH COARSE BREATH SOUNDS THRUGHOUT. CONTINUE TO USE ORAL SUCTION FOR SECRETIONS. NO FUTHER CHANGES.
--- NOTE | 2019-04-24 12:45 | NUR ---
NGT RETAPED PER PATIENT REQUEST. SINCE NGT HAS BEEN RETAPED SO OFTEN IN PAST 2 DAYS NOSEGUARD PLACED FOR PATIENT COMFORT. WILL CONTINUE TO EVALUTE.
--- NOTE | 2019-04-24 13:30 | NUR ---
C/O INCREASED LOWER ABD PAIN, FENTANYL 50 MCG IV GIVEN FOR PAIN.
--- NOTE | 2019-04-24 13:46 | NUR ---
TPN DAY 5 TODAY. STILL NPO WITH NGT. TPN PROVIDING AN AVERAGE OF 2,188 CALORIES, 100 GRAMS PROTEIN PER DAY. POC GLUCOSE 147 THIS AM. OTHER LABS LOOK GOOD. NO CHANGES IN TPN RECOMMENDED AT THIS TIME. AWAIT BOWEL TONES BEFORE INITIATING ORAL DIET. WILL CONTINUE TO MONITOR.
--- NOTE | 2019-04-24 15:40 | NUR ---
OOB, AMBULATED IN HALLWAY USING WALKER. NURSE WITH PATIENT. WALKED THE LENGHT OF CALERO IN CCU AND BACK TO ROOM. TOLERATED WELL, THEN TO CHAIR. FAMILY MEMBERS ARE IN ROOM.
--- NOTE | 2019-04-24 16:00 | NUR ---
ASSESSMENT DONE WHILE PATIENT SITTING IN CHAIR. PATIENT W/O C/O.
--- NOTE | 2019-04-24 16:10 | NUR ---
TPN AND LIPIDS HUNG PER ORDERS.
--- NOTE | 2019-04-24 16:45 | NUR ---
BACK TO BED WITH ASSIST.
--- NOTE | 2019-04-24 17:53 | NUR ---
ZOFRAN 8 MG IV GIVEN FOR NAUSEA. USING ORAL SUCTION FREQUENTLY.
--- NOTE | 2019-04-24 18:11 | NUR ---
PATIENT STATES HE FEELS BETTER NOW.
--- NOTE | 2019-04-24 18:55 | NUR ---
C/O INCREASED LOWER ABD DISCOMFORT, ALSO C/O SOME NAUSEA,IS MOANING . FENTANYL 50 MCG IV GIVEN FOR PAIN. C/O CHILLING TEMP-100.1
--- NOTE | 2019-04-24 20:00 | NUR ---
BP ELEVATED AT 154/78. TEMP IS BACK DOWN SOME. OTHER V/S ARE WDL. ALL LOBES ARE CLEAR BUT DIMINISHED IN THE BASES. ABD SOUNDS ARE ABSENT, ABD IS STILL VERY DISTENDED AND TAUGHT. STAPPLES ARE INTACT AND INCISIO IS C/D AND WELL APPROXIMATED. NG TUBE IS STILL PUTING OUT GREENISH THICK FLUID. URINE OUTPUT SO FAR IS ADEQUATE BUT COLOR OF URINE IS STILL TEA LIKE. NO PERIPHERAL EDEMA NOTED, PAIN AND NAUSEA AT THIS TIME ARE WELL CONTOLLED. PT ONLY TOLERATED 30MLS OF H2O FOR NG TUBE FLUSH.
--- NOTE | 2019-04-24 21:57 | NUR ---
PT AT THIS TIME IS SLEEPING. NO NEW CONCERNS NOTED AT THIS TIME.
--- NOTE | 2019-04-24 22:52 | NUR ---
PT WOKE UP IN PAIN 10/10. PRN FENTANYL WAS GIVEN PER ORDER. WILL CONTINUE TO MONITOR.
--- NOTE | 2019-04-25 | NUR ---
PT IS SLEEPING AT THIS TIME.
--- NOTE | 2019-04-25 03:21 | NUR ---
PT IS SLEEPING AT THIS TIME. NO NEW CONCERNS NOTED.
--- NOTE | 2019-04-25 05:00 | NUR ---
PT AT THIS TIME HAS PAIN 7/10 AND ALSO HAS SOME NAUSEA. PRN FENTANYL AND ZOFRAN WILL BE GIVEN. V/S ARE WDL, ALL LOBES ARE CLEAR, GREEN NG TUBE OUTPUT IS STILL PRESENT, URINE OTUPUT IS ADEQUATE BUT COLOR IS UNCHANGED TEA LIKE. ABDOMEN HAS NO BOWEL TONES, ABD IS VERY DISTENDED, FIRM AND TENDER TO TOUCH. NO PERIPHERAL EDEMA NOTED. WILL CONTINUE TO MONITOR.
--- NOTE | 2019-04-25 08:00 | NUR ---
ASSESSMENT DONE. PATIENT IS AWARE OF PLAN OF CARE THERE ARE GOING TO MANY CHANGES TODAY.
--- NOTE | 2019-04-25 08:10 | NUR ---
ROUTINE MEDS GIVEN, FENTANYL 50 MCG IV GIVEN FOR PAIN.
--- NOTE | 2019-04-25 08:20 | NUR ---
UA SENT TO LAB PER ORDERS.
--- NOTE | 2019-04-25 08:30 | NUR ---
IVF OF D5LR HUNG PER ORDERS TO NEWLY PLACED IV SITE TO LEFT INNER FOREARM. BCX 2 SITES OBTAINTED FROM CVC AND LFA. TPN DECREASED TO 40 ML/HR. PATIENT TO XRAY FOR PA AND LAT CHEST XRAY VIA W/C,RN AND TECH WITH PATIENT.
--- NOTE | 2019-04-25 09:00 | NUR ---
TOLERATED XRAY WELL, BACK TO BED W/O INCIDENT. PATIENT IS VERY TIRED. STATES HE JUST REALLY DOESN'T FEEL WELL TODAY.
--- NOTE | 2019-04-25 10:50 | NUR ---
FENTANLY 50MCG IV REPEATED FOR PAIN. ABD REMAINS DISTENDED. DENIES NAUSEA AT THIS TIME.
--- NOTE | 2019-04-25 11:00 | NUR ---
CARNEY CATH REPLACED WITH 16 FR CARNEY CATH PER ORDERS W/O DIFFICULTY. PATIENT TOLERATE WELL. UA SENT TO LAB. SPUTUM SENT TO LAB WELL. PATIENT CONTINUE WITH PRODUCTIVE COUGH OF THICK WHITE SPUTUM.
--- NOTE | 2019-04-25 11:55 | NUR ---
2ND PERIPHERAL IV STARTED TO RIGHT WRIST BY Era CASE RN. CEFEPIME HUNG TO THIS SITE.
--- NOTE | 2019-04-25 12:00 | NUR ---
ACCUCHECK-163. TPN DECREASED TO 20 ML/HR. PLAN TO DC RIJ AT 1300 LONG ACCUCHECK WNL.
--- NOTE | 2019-04-25 13:00 | NUR ---
ACCROMEL-176 ARLINE CUNHA. TIP OF CATH SENT TO LAB FOR CULTURE. IVF AT 100 ML/HR.
--- NOTE | 2019-04-25 13:15 | NUR ---
FENTANLY 50 MCG IV GIVEN FOR ABD PAIN.
--- NOTE | 2019-04-25 14:35 | NUR ---
RESTFUL. DENIES NEED FOR PAIN MEDICATION AT THIS TIME. CARNEY CATH PATENT WITH ABDIRASHID URINE NOTED. IVF AT 100 ML/HR. IV ABX CURRENTLY ORDERED ARR FALGYL, VANCOMYCIN, CEFEPIME. IV SITES TO BOTH ARMS ARE PATENT. NG REMAINS TO LCS. BILE LIKE CONTENTS NOTED.
--- NOTE | 2019-04-25 15:30 | NUR ---
C/O INCREASED ABD PAIN. FENTANYL 50 MCG IV GIVEN FOR PAIN.
--- NOTE | 2019-04-25 15:40 | NUR ---
ZOFRAN 8 MG IV GIVEN FOR NAUSEA.
--- NOTE | 2019-04-25 16:00 | NUR ---
ASSESSMENT DONE. ONE HIGH PITCHED TINKLE HEARD IN RUQ. LUNGS CLEAR. DENEIS SHORTNESS OF BREATH. CARNEY CATH PATENT WITH ABDIRASHID URINE NOTED. URINE IS PROFILING MACHINE SET UP OPERATOR TOOL NOW THAN PREVIOUS.
--- NOTE | 2019-04-25 16:15 | NUR ---
OOB, AMBULATING IN HALLWAY USING WALKER. RN ACCOMP PATIENT. PATIENT NEEDS MUCH ENC TO AMBULATE.
--- NOTE | 2019-04-25 17:40 | NUR ---
PHENERGAN 12.5 MG IV GIVEN FOR NAUSEA.
--- NOTE | 2019-04-25 18:00 | NUR ---
SLEEPING AFTER PHENERGAN GIVEN. NO DISTRESS NOTED.
--- NOTE | 2019-04-25 19:56 | NUR ---
REPORT RECEIVED FROM DAY SHIFT. PT CALLS, C/O PAIN "ALL OVER" AND NAUSEA. TOO EARLY FOR NAUSEA MED, IV FENTANYL 50MCG GIVEN.
--- NOTE | 2019-04-25 20:20 | NUR ---
DR DONIS IN TO SEE PT.
--- NOTE | 2019-04-25 21:30 | NUR ---
PT RESTING IN BED, NGT OUTPUT SEEMS TO HAVE CHANGED TO CLEAR YELLOW. DENIES NEEDS AT THIS ROBINSON.
--- NOTE | 2019-04-25 23:18 | NUR ---
PT HAD 7 BEATS VTACH, DR PAK CALLED, VERIFIED ORDERS IN FOR AM LABS. PT AWAKE IN BED, DID NOT NOTICE CHANGE IN BEATS. REQUESTING MEDS SO HE CAN GO TO SLEEP. WILL GIVE PAIN MED AND NAUSEA MEDICINE.
--- NOTE | 2019-04-25 23:35 | NUR ---
50MCG IV FENTANYL GIVEN WITH 8MG IV ZOFRAN.
--- NOTE | 2019-04-26 00:11 | NUR ---
PT RESTING WITH EYES CLOSED. APPEARS MORE COMFORTABLE. ASSESSMENT DONE, PT MOSTLY SLEEPS THROGH ASSESSMENT. IV VANCO STARTED.
--- NOTE | 2019-04-26 02:01 | NUR ---
PT RESTING WITH EYES CLOSED, RESP EVEN AND UNLABORED.
--- NOTE | 2019-04-26 02:40 | NUR ---
PT CALLS TO STATE HE HAD A NIGHTMARE AND PULLED OUT HIS NGT. NGT REPLACED, PREMEDICATED WITH 50MCG IV FENTANYL. CHEST XRAY DONE TO CONFIRM PLACEMENT.
--- NOTE | 2019-04-26 04:15 | NUR ---
PT APPEARS TO BE SLEEPING AND RESTFUL, HASNOT SLEPT MUCH TONIGHT, WILL HOLD ASSESSMENT UNTIL HE WAKES UP. VSS, RESP EVEN AND UNLABORED.
--- NOTE | 2019-04-26 05:20 | NUR ---
LAB IN TO DRAW, ASSESSMENT DONE.
--- NOTE | 2019-04-26 08:16 | NUR ---
PT C/O NAUSEA AND PAIN, MEDICATED WITH PHERGRAN AND FENTALY AT THIS TIME. PT C/O OF NG TUBE BEING UNCOMFORTABLE AND THAT HIS STOMACH IS UPSET.
--- NOTE | 2019-04-26 09:22 | NUR ---
PT C/O PAIN AND NAUSEA THIS AM ABOUT 08. PT MEDICATED AND AT THIS TIME FEELS "SO MUCH BETTER". NG TAPE RETAPED AT HTIS TIME, AND DAUGHTER INTO SEE PT. THEY BOTH ASK QUESTION AND UNDERSTAND PLAN OF CARE. PT HAS BEEN WORKING WITH RT THIS AM AND DID WELL WITH IT. URINE OUTPUT GOOD SO FAR THIS AM, AND IS YELLOW IN COLOR AT THIS TIME. NG DRAINAGE UNCHANGE DRAK BROWN TO GREEN IN COLOR.
--- NOTE | 2019-04-26 10:00 | NUR ---
PT APPEARS TO BE SLEEP AT THIS TIME.
--- NOTE | 2019-04-26 11:18 | NUR ---
pt up with physical therapy at this time, pt ng dressing contioues to fall off due to pt oiley skin in nature. Pt walked for 6 minutes. Then pt to the chair at this time. Phone call into Dr. Benedict about transfer to the MS unit.
--- NOTE | 2019-04-26 12:12 | NUR ---
PT REMAINS UP IN THE CHAIR, MEDICATED WITH PAIN MEDICATIONS AT THIS TIME. FAMILY INTO SEE PT AT THIS TIME, VISITING AND LAUGHING AT TIMES.
--- NOTE | 2019-04-26 12:28 | NUR ---
PT STATES THAT THE PAIN MEDICATIONS IS WORKING.
--- NOTE | 2019-04-26 13:47 | NUR ---
PT SITTING IN CHAIR, NG TUBE STILL IN USE. HE IS SMILING, LAUGHING AND JOKING AT TIMES WITH HIS FAMILY. HAD GOOD VISIT, MUCH DIFFERENT DEMEANOR TODAY THAN YESTERDAY. HE WAS FEELING BAD AND TOLD ME HE WASN'T SURE HE WOULD BE HERE TOMORROW. EXTENDED A BLESSING, WILL FOLLOW NEEDED
--- NOTE | 2019-04-26 15:46 | NUR ---
PT UP TO THE BEDSIDE COMMODE AT THIS TIME, PT STATES "I NEED TO HAVE A BM " "I THINK" CALL LIGHT WITHIN REACH.
--- NOTE | 2019-04-26 16:34 | NUR ---
PT C/O ABD CRAMPING, ENCOURAGE HIM TO AMBULATE, HE WALED FROM ROOM 127 TO 130 AND BACK X 2. THEN UP TO THE CHAIR PER PT'S REQUEST. PT WAS MEDICATED FOR THE CRAMPING WITH FENTANYL 50MCG/IVP.
--- NOTE | 2019-04-26 17:33 | NUR ---
PT BACK TO BED AFTER BEDBATH THIS EVENING. PT STATES " I FELL SO MUCH BETTER AT THIS TIME, I NOT SURE WHAT YOU DID TO ME BUT I FEEL THAT BETTER. I CAN GET MY LEGS BACK IN THE BED AND GET UP WITH OUT YOU PULLING ON ME" PT OVERALL APPEARS AND ATTUDITE IS BETTER TODAY. PT IS EVEN WATCHING TV TONIGHT.
--- NOTE | 2019-04-26 18:34 | NUR ---
PT RESTING COMFORTABLE AT THIS TIME, APPEARS TO BE SLEEPING, NG TO LIWS, CARNEY DRAINING YELLOW IN COLOR URINE, AND SPO2 97%.
--- NOTE | 2019-04-26 21:00 | NUR ---
PATIENT PROVIDED WITH EVENING MEDICATIONS. REPORTS PAIN 6/10, DENIES NEED FOR PRN PAIN MEDS. VERBALIZED HIS PLAN TO AVOID THE NARCOTICS TO IMPROVE HIS BOWEL MOBILITY. NG TUBE WORKING WELL, CONNECTED TO LIWS. BILE DRAINAGE NOTED. PATIENT DENIES NAUSEA. BOWEL SOUNDS FAINTLY HEARD IN RUQ. ABD SEVERLY DISTENDED AND FIRM. MIDLINE INCISION HEALING WELL. CARNEY IN PLACE, URINE OUTPUT QS. IV FLUIDS PER ORDER, IV SITE WNL. VS STABLE. SLIGHTLY ELEVATED ORAL TEMP, 99.4 F. ENCOURAGED COUGH AND DEEP . LUNG SOUNDS ARE COARSE THROUGHOUT. MODERATE AMOUNT OF SPUTUM, PATIENT SELF SUCTIONS.
--- NOTE | 2019-04-26 23:00 | NUR ---
LAB UNABLE TO DRAW SCHEDULED LABS. BLOOD DRAW FROM IV SITE BY THIS RN. PATIENT UPSET WITH BEING WOKEN UP. DENIES NEEDS, STATES "JUST NO MORE DISRUPTIONS".
--- NOTE | 2019-04-27 01:00 | NUR ---
PATIENT'S VANCO TROUGH BELOW GOAL OF 14-19, ONCALL PHARMACIST CONTACTED, DOSE ADJUSTED. 500MG ADDED FOR TOTAL OF 2000MG.
--- NOTE | 2019-04-27 01:56 | NUR ---
PATIENT REPORTS ANXIETY AND NAUSEA. STATES "IT'S ALL BECAUSE I CAN'T HAVE A CIGARETTE". PRN NAUSEA MEDICATION PROVIDED. ENCOURAGED PATIENT TO TAKE BREATHS.
--- NOTE | 2019-04-27 02:28 | NUR ---
PATIENT APPEARS TO BE SLEEPING SOUNDLY AT THIS TIME. VS STABLE.
--- NOTE | 2019-04-27 04:15 | NUR ---
PATIENT USING ORAL SUCTION AND HAVING INCREASED COUGHING. DENIES NEDS. TOLERATING ROOM AIR. HOB ELEVATED.
--- NOTE | 2019-04-27 05:45 | NUR ---
PATIENT USED CALL LIGHT TO ALERT STAFF THAT HE HAD PULLED HIS NG TUBE OUT. PATIENT REPORTS "AT NIGHT I JUST HAVE THESE EPISODES, YOU NEED TO BE MONITORING ME." PATIENT BELIEVES HE IS RESTLESS WHILE SLEEPING DUE TO NOT SMOKING. OTHERWISE PATIENT IS DOING WELL. VS STABLE. IV ABX AND FLUIDS PER ORDER, SITE WNL. URINE OUTPUT QS. NG TUBE HAD PUT OUT 600ML OF BILE THIS SHIFT.
--- NOTE | 2019-04-27 06:33 | NUR ---
NOTIFIED MD OF PATIENT PULLING NG TUBE, ORDERS TO REPLACE NG TUBE.
--- NOTE | 2019-04-27 07:30 | NUR ---
PATIENT SHIFT REPORT RECEIVED FROM INDOOR LANDSCAPE ARCHITECT RN. PATIENT RESTING IN BED AT THSI TIME. PATIENT REMOVED NG TUBE THIS AM AND STAFF TRIED TO REPLACE TUBE X2 WITH NO SUCCESS. PATIENT STATED I AM NOT GOING TO DO IT AGAIN WITHOUT SOMETHING TO HELP ME RELAX. WILL UPDATE MD WHEN HE ROUNDS. NO OTHER ISSUES AT THIS TIME. CALL LIGHT IN REACH. WILL CONTINUE TO CLOSELY MONITOR.
--- NOTE | 2019-04-27 08:30 | NUR ---
PATIENT SHIFT ASSESSMENT COMPELTED BY THIS RN AND TRUCK SAFETY INSPECTOR ERICA. PATIENT BREATH SOUNDS COARSE. PATIENT REMAINS ON RA AT THIS TIME WITH SPO2 98%. BOWEL TONES ARE VERY DIFFICULT TO HEAR. PATIENT DENIES PASSING GAS. NO NG TUBE PRESENT. MD DONIS HERE TO SEE PATIENT. UPDATED ABOUT NG TUBE SITUATION AND PATIENT REFUSING TO HAVE IT PUT IN WITHOUT SOMETHING TO HELP HIM RELAX. NEW ORDER FOR ATIVAN. WILL GIVE PER ORDERS AND THEN INSERT TUBE. PATIENT ABD REMAINS TIGHT AND DISTENDED AND TENDER TO PALPITATION. NO NAUSEA AT THIS TIME. ORAL SUCTION AT THE BEDSIDE. SCDS IN PLACE. CALL LIGHT IN REACH. PATIENT JOKES WITH STAFF. ENCROUAGED TO GET UP AND WALKING TODAY TO HELP INCREASE BOWEL ACTIVITY.
--- NOTE | 2019-04-27 09:35 | NUR ---
INSERTED NG TUBE TO PREDETERMINED LENGTH. PATIENT TOLERATED WELL. WAS ABLE TO INSERT INTO RIGHT NOSTRIL WITH NO ISSUES. PINNED TUBE TO GOWN. LOW INTMINT. SUCTION APPLIED. GREEN BILE PRESENT. PATIENT IS VERY OILY AND TAPE DOES NOT STAY WELL ON HIS SKIN. PLACED ET TUBE HOLGUIN ON TUBE. THIS IS WHAT IS WORKING BEST FOR PATIENT AT THIS TIME. PATIENT NOW RESTING I NBED. WILL CONTINUE TO CLOSELY MONITOR.
--- NOTE | 2019-04-27 10:45 | NUR ---
PATIENT RESTING IN BED WITH THE LIGHTS DOWN AT THIS TIME. RR 18, SPO2 98% ON RA. CALL LIGHT IN REACH. WILL CONTINUE TO CLOSELY MONITOR.
--- NOTE | 2019-04-27 11:45 | NUR ---
PATIENT WILL TRANSFER TO ROOM 109 ON [facility]. GAVE REPORT TO ANNA DE LEON. ALL QUESTIONS ANSWERED. BINGO CALLER ERICA WILL FOLLOW PATIENT TO [facility] AND CONTINUE PATIENT CARE WITH ANNA DE LEON. WILL SEND WITH ALL BELONGINGS.
--- NOTE | 2019-04-27 11:50 | NUR ---
PT ARRIVED TO ROOM 109 VIA CHAIR WITH AND MOISES BAE. PT ALERT AND ORIENTED. PT DENIES SOB, NAUSEA OR PAIN AT THIS TIME. CALL LIGHT AND H2O IN REACH. NG TUBE IN PLACE AND CONNECTED TO LIWS. CALL LIGHT AND PERSONAL BELONGINGS IN REACH, INCLUDING TOOTHETTES AND HARD CANDY FOR PT COMFORT. ASSESSMENT COMPLETED AND VSS. NO FURTHER NEEDS OR CONCERNS VOICED.
--- NOTE | 2019-04-27 12:00 | NUR ---
PATIENT BELONGINGS GATHERED AND PATIENT BROUGHT OVER IN THE CHAIR. PATIENT WAS ABLE TO STAND WELL AND MOVE OVER TO THE CHAIR. CARNEY HAS YELLOW URINE PRESENT. ORIENTED PATIENT TO HIS NEW ROOM AND INTRODUCED RN. SUCTION TUBING SET UP AT THE BEDSIDE AND PLACED BACK ON LOW INTERMIT SUCTION. ALL BELONGINGS GATHERED AND SENT WITH PATIENT. PATIENT IS AGREEABLE TO TRANSFER AND PLAN OF CARE.
--- NOTE | 2019-04-27 13:03 | NUR ---
PT MOVED FROM CCU TO M/S. HE WAS ON PHONE WHEN I ARRIVED, SITTING IN CHAIR AND STILL WITH NG TUBE. EXTENDED A BLESSING, WILL FOLLOW NEEDED
--- NOTE | 2019-04-27 14:48 | NUR ---
PT INSTRUCTED TO USE INCENTIVE SPIROMETER TO PREVENT PNEUMONIA. PT STATES THAT HIS THROAT IS TOO PAINFUL BECAUSE OF THE NG TUBE. PT REFUSES PHARMACOLOGICAL PAIN RELIEF. PT EDUCATED THAT WALKING HELPS PREVENT PNEUMONIA AND HELPS ACTIVATE THE BOWEL. PT STATES HE IS TOO EXHAUSTED TO WALK. PT REFUSES TO WALK WITH PHYSICAL THERAPY AND RN/STUDENT NURSE. PT CAREFULLY RESTING IN BED AFTER SITTING IN THE CHAIR FOR TWO HOURS.
--- NOTE | 2019-04-27 16:00 | NUR ---
PT RESTING SUPINE IN BED ALERT AND ORIENTED NG REMAINS TO LIWS, CALL LIGHT AND H2O IN REACH. IVF AND IV ABX INFUSING TO RFA, PT DENIES NUMBNESS, TINGLING OR BURNING TO IV SITE AND SITE APPEARS WNL. NO NEEDS OR CONCERNS VOICED.
--- NOTE | 2019-04-27 17:02 | NUR ---
PT ENCOURAGED TO SIT ON SIDE OF BED WITH SN AND PRECEPTOR. PT REFUSED. PT AGREED TO USE CHEST PHYSIOLOGY TOOL AND ATTEMPT DEEP BREATHING AND COUGHING. PT AGREES TO SHOWER TOMORROW MORNING
--- NOTE | 2019-04-27 17:40 | NUR ---
BRUNER- ROD PAIN SCALE APPEARS TO BE IMPROVED SINCE FENTANYL ADMINISTRATION. PT RESTING COMFORTABLY AFTER FENTANYL AND APPEARS TO BE SLEEPING. NO CHANGES IN RESPIRATORY EFFORT. WILL CONTINUE TO MONITOR
--- NOTE | 2019-04-27 18:14 | NUR ---
PT REPORTING 5-10/10 ABDOMINAL PAIN THAT COMES IN WAVES AND STARTS IN LOWER QUADRANT AND SHOOTS UP TO UPPER QUADRANT IV FENTANYL ADMINISTERED PER PT REQUEST. PT ALSO REPORTS PERSISTING DISTENTION AND STATES "I FEEL REALLY BLOATED. MINIMAL OUTPUT NOTED TO NG. HYPOACTIVE BT'S NOTED TO LLQ WILL NOTIFY MD. NO FURHTER NEEDS OR CONCERNS VOICED AND PT DENIES NAUSEA SOB OR ANY OTHER SYMPTOMS. NG REMAINS TO LIWS. IV MAINTENANCE FLUIDS CONTINUE TO INFUSE PER ORDER.
--- NOTE | 2019-04-27 18:34 | NUR ---
NURSE SHIFT SUMMARY: ASSESSMENT PRESENTED WITH ABDOMNIAL DISTENTION AND FIRMNESS. BOWEL SOUNDS WERE RARE IN THE RUQ AND ABSENT IN THE THREE OTHER QUADRANTS. LUNGS PRESENTED WITH COURSE CRACKLES IN ALL LOBES. REPORTED NO SHORTNESS OF BREATH. PT REPEATEDLY SUCTIONING OWN SUPTUM AFTER COUGHING. PROVIDED ALBUETROL BY RT. PT WAS TRANSFERED TO MEDICAL SURGICAL FLOOR AT 1200. BOWEL SOUNDS BECAME ACTIVE IN ALL FOUR QUADRANTS THROUGHOUT THE DAY. LUNGS WERE UNCHANGED THROUGHOUT THE SHIFT. AT 1635 PT REPORTED NAUSEA AND ABDOMNIAL PAIN. ADMINISTERED FENTANYL AND ZOFRAN WHICH RELIEVED THE SYMPTOMS BRIEFLY. AT 1800, REPORTED SEVERE 10/10 UPPER ABDOMINAL AND MIDLINE PAIN THAT RADIATED INTO THE STERNUM. RN WAS NOTIFIED AND CAME IN TO ASSESS; ADMINISTERED ANOTHER 50 MCG OF FENTANYL. BOWEL SOUNDS CONTINUED TO BE HYPOACTIVE AND LAST ASSESSEMEMT SHOWED RARE IN LLQ. ENCOURAGED TO AMBULATE FREQUENTLY BUT REPEATEDLY REFUSED. REFUSED SHOWER TWO TIMES WITHIN THE DAY. PT REFUSED AMBULATION WITH PHYSICAL THERAPIST BUT COMPLETED LIMB EXERCISES. CONTINUALLY REMINDED TO USE IS AND COUGH/DEEP BREATHE; REFUSED IS AND DEEP BREATHING BECAUSE OF NG TUBE PAIN. REFUSED ICE CHIPS AND PAIN MEDICATION TO RELIEVE THAT PAIN.
--- NOTE | 2019-04-27 18:40 | NUR ---
DR DONIS NOTIFIED OF PT'S S/SX'S PREVIOUSLY NOTED. NEW ORDERS RECEIVED - SEE ORDER FLOW SHEET.
--- NOTE | 2019-04-27 18:58 | NUR ---
PT REPORTS SOME PERSISTING ABDOMINAL PAIN 2/10, PRN IV OFIRMEV ADMINISTERED. CTM. CALL LIGHT AND PERSONAL ITEMS IN REACH.
--- NOTE | 2019-04-27 19:20 | NUR ---
SHIFT REPORT RECEIVED FROM MAVERICK CASTILLO. PT RESTING IN BED, EYES CLOSED. RR WNL. IV FLUIDS INFUSING, SITE WNL. NG TUBE TO WLIS, CONTENTS GREEN IN COLOR. CALL LIGHT IN REACH.
--- NOTE | 2019-04-27 20:19 | NUR ---
VITALS DONE AND CHARTED. PT NEEDS NOTHING AT THIS TIME.
--- NOTE | 2019-04-27 20:45 | NUR ---
ASSESSMENT COMPLETE, SCHEDULED MEDICATIONS GIVEN (SEE EMAR). IV FLUIDS INFUSING, SITE X2 WNL. ABDOMINAL INCISION WELL APPROXIMATED, LEIGH INTACT AND IS OPEN TO AIR. PT REPORTS TOERABLE PAIN WHEN RESTING IN BED, DENIES NEED FOR PAIN MEDICATION AT THIS TIME. NG TUBE TO LIWS, OUTPUT GREEN IN COLOR, SECURED TO PT. PT DENIES ADDITIONAL NEEDS, CALL LIGHT IN REACH.
--- NOTE | 2019-04-27 22:12 | NUR ---
IN ROOM TO ADMINISTER FLAGYL FOR PT'S PRIMARY RN MEL. PT WOULD LIKE TO WAIT ON NEB TRT UNTIL LATER HE IS SUCKING ON A PEICE OF CANDY RIGHT NOW. PASSED THE MSG ALONG TO MEL DE LEON. PT DENIES FURTHER NEEDS AT THIS TIME. CALL LIGHT IS CLOSE.
--- NOTE | 2019-04-27 22:30 | NUR ---
IV ABX INFUSING, IV SITE WNL. PT DENIES ADDITIONAL NEEDS, CALL LIGHT IN REACH. IV FLUIDS ALSO INFUSING. NG TUBE TO LIWS, GREEN OUTPUT.
--- NOTE | 2019-04-27 23:30 | NUR ---
SPOKE TO TELEPHARMACY.PT'S VANCO WAS FOUND IN KITS LIST. PER TELEPHARMACY, VANCO IS OKAY TO ADMINISTER AT ROOM TEMP WITHIN 24 HOURS AFTER MIXING.
--- NOTE | 2019-04-28 01:17 | NUR ---
VANCO UP AND RUNNING. PATIENT RESTING QUIETLY, REPIRATIONS REGULAR AND EVEN, EYES CLOSED, CALL LIGHT IN REACH.
--- NOTE | 2019-04-28 01:49 | NUR ---
IV SITE TO RIGHT WRIST WAS ALREADY IN PLACE BEFORE THE START OF THIS SHIFT. THIS RN DID NOT INSERT IV. SITE IS WNL AT THIS TIME.
--- NOTE | 2019-04-28 02:20 | NUR ---
SCHEDULED IV LOPRESSOR ADMINISTERED. VSS. IV ABX INFUSING, IV SITE WNL. PT DENIES NEEDSM, CALL LIGHT IN REACH. NG TUBE TO WLIS, OUTPUT REMAINS GREEN IN COLOR. CALL LIGHT IN REACH.
--- NOTE | 2019-04-28 06:00 | NUR ---
ASSESSMENT COMPLETE, NO NEW CHANGES OR CONCERNS. ABDOMINAL INCISION OPEN TO AIR, LEIGH INTACT, WELL APPROXIMATED. PT DENIES NAUSEA, ABDOMEN FIRM, DENIES PASSING GAS. UNABLE TO HAVE BM AT THIS TIME. REPORTS INCREASING PAIN, RN AXEL IN ROOM TO ADMINISTER PAIN MEDICATION. NO FURTHER NEEDS, CALL LIGHT IN REACH.
--- NOTE | 2019-04-28 06:32 | NUR ---
PATIENT GIVEN 50MCG OF FENTYNL IV FOR ABD PAIN 02/18, WHICH IS KICKNG IN ALREADY AND HIS FLAGYL IS RUNNING . FLUSHED NG WITH 30MLS WATER AND THEN HOOKED BACK UP TO LIWS AND 130MLS WAS RETURNED INTO THE CANISTER. HERE TO SEE PATIENT AT THIS TIME.
--- NOTE | 2019-04-28 07:28 | NUR ---
PT RESTING SUPINE IN BED ALERT AND ORIENTED WATCHING TV. REPORT RECEIVED FROM MOISES LEAL. PT DENIES NEEDS OR CONCERNS. CALL LIGHT AND PERSONAL ITEMS IN REACH. NG REMAINS ON LIWS.
--- NOTE | 2019-04-28 07:50 | NUR ---
SHIFT CHANGE REPORT FROM MOISES LEAL AT 0720. PT RESTING. REPOSITIONED FURTHER UP IN BED FOR COMFORT. DENIES NEED FOR PAIN MEDICATION.
--- NOTE | 2019-04-28 08:04 | NUR ---
PT REFUSED TO AMBULATE TO CHAIR. REFUSED TO SIT ON THE SIDE OF THE BED. DUE TO PAIN; REFUSED PAIN MEDICATION
--- NOTE | 2019-04-28 10:25 | NUR ---
Pt reports nausea and IV to RFA is no longer patent and was removed, new iv to fa started without difficulty on first attempt. call light and h2o in reach. IV zofran was administered per pt request see emar.
--- NOTE | 2019-04-28 10:25 | NUR ---
Pt reports nausea and IV to RFA is no longer patent and was removed, new 20GA IV to LFA started without difficulty on first attempt pt tolerated well. Call light and personal belongings in reach. IV zofran was administered per pt request and IV fluids and abx continue to infuse as ordered. NG remains to liws. Pt denies further needs or conerns. Pt was educated on importance of ambulation in healing process and in order to prevent blood clots and to maintain lung health.
--- NOTE | 2019-04-28 10:49 | NUR ---
R FOREARM IV REMOVED AT 0945 DUE TO SEVERE PAIN WITH FLUSHING AND TOUCH PT REPORTED NAUSEA AT THAT TIME. 8MG ZOFRAN GIVEN TO IMPROVE SX
--- NOTE | 2019-04-28 12:05 | NUR ---
PT RESTING COMFORTABLY IN BED AFTER WALK WITH PHYSICAL THERAPY. WATCHING TV AND FALLING ASLEEP. NG TUBE ON LOW INTERMITTENT WALL SUCTION. CALL LIGHT WITHIN REACH. MOUTH SWABS AND IS WITHIN REACH
--- NOTE | 2019-04-28 12:40 | NUR ---
PT ASLEEP, STAFF ASKED TO NOT DISTURB. WILL CHECK BACK AGAIN
--- NOTE | 2019-04-28 14:47 | NUR ---
PT RESTING IN SEMIFOWLERS POSITION IN BED ALERT AND ORIENTED. PT REPORTS NAUSEA SO PRN IV PHENERGAN ADMINISTERED. IV ABX NOW INFUSING PER ORDER -SEE EMAR. VSS. CALL LIGHT AND MOISTENED TOOTHETT SPONGE IN REACH FOR COMFORT. PT REMAINS NPO AND WITH NG TUBE TO LIWS. PT REPORTS "NOBODY TOLD ME ABOUT THIS PICC LINE NEEDING TO BE INSERTED AND I WON'T ALLOW ANOTHER TUBE TO BE PUT INTO ME". PT EDUCATED ON IMPORTANCE OF THIS PROCEDURE IT WILL ALLOW PT TO ONLY HAVE ONE LINE AND WILL ALLOW FOR TPN ADMINISTRATION SO THAT HE CAN HAVE HIS NUTRITIONAL NEEDS MET WHILE HIS BOWELS CONTINUE TO HEAL. PT CONTINUES TO DECLINE PICC. MOISES BERRY AND MOISES SNYDER AND DR DONIS ALSO IN TO DISCUSS RISKS AND BENAFITS OF PICC LINE INSERTION AND PT CONTINUES TO DECLINE AT THIS TIME. PT STATES "LET ME TALK TO MY FMAILY FIRST AND I'LL LET YOU KNOW IF I CHANGE MY MIND BUT RIGHT NOW I WON'T ALLOW IT".
--- NOTE | 2019-04-28 15:26 | NUR ---
PICC LINE CONSULT ASKED TO ASSESS PT FOR POSSIBLE PICC LINE PLACEMENT THE PT IS NEEDING TPN AND OTHER MEDICATIONS. UPON ENTERING THE ROOM THE PT APPEARED UPSET AND SAYING, "I DO NOT WANT ANY MORE TUBES ENTERING MY BODY. YOU ARE NOT PUTTING IN ANOTHER TUBE". I ASKED THE PT IF I COULD GIVE HIM MORE INFORMATION ABOUT THE REASONINGS THAT DOCTOR WANTED THE PICC LINE. THE PT WANTED TO TALK WITH DR. DONIS BEFORE PRECEDING WITH ANYMORE INFORMATION. DR. DONIS WAS NOTIFIED AND WENT INTO THE ROOM TO TALK WITH THE PT. THE PT WAS THEN AGREEABLE TO HEAR THE RISKS AND BENEFITS OF THE PICC LINE. AFTER DISCUSSING THE RISKS AND BENEFITS AT LENGTH, THE PT DECIDED HE DID NOT WANT A PICC LINE AT THIS TIME AND WANTS TO TALK WITH HIS FAMILY ABOUT IT FIRST. EDUCATED THE PT TO NOTIFY HIS NURSE IF HE CHANGES HIS MIND OR IF HE OR HIS FAMILY HAS ANYMORE QUESTIONS. PT STATES UNDERSTANDING AND AGREEABLE TO THIS. DR. ARRIETA AND DR. DONIS NOTIFIED.
--- NOTE | 2019-04-28 15:41 | NUR ---
PT REEDUCATED ON IMPORTANCE OF AMBULATING 4-5 TIMES A DAY OR MUCH HE CAN TOLERATE. PT HAS SO FAR ONLY AMBULATED ONCE WITH P.T. AFTER SOME ENCOURAGEMENT PT AGREES TO AMBULATE SO WAS ASSISTED UP AND AMBULATED ONE LAP AROUND NURSING STATION AND BACK TO BED. NG BACK TO LIWS AND IV FLUIDS AND ABX CONTINUE INFUSING PER ORDER. CALL LIGHT AND PERSONAL ITEMS IN REACH. PT DENIES NAUSEA AND STATES PAIN IS TOLERABLE AT THIS TIME. CALL LIGTH AND H2 IN REACH.
--- NOTE | 2019-04-28 16:03 | NUR ---
TPN HAS BEEN STOPPED SINCE 04/25 DUE TO PRECAUTION FOR AN INFECTION. PATIENT OTHERWISE NPO WAITING FOR GUT FUNCTION TO RETURN. BLOOD SUGARS NOT CHECKED TODAY. THEY WERE 109, 107 YESTERDAY. ANTICIPATE TPN TO RESTART SOON, UNTIL PATIENT ABLE TO TAKE AN ORAL DIET. PREVIOUS TPN RX IS FINE FOR MEETING PATIENT'S NUTRITIONAL NEEDS. WILL CONTINUE TO MONITOR.
--- NOTE | 2019-04-28 16:08 | NUR ---
DISCUSSED POSSIBILTY OF PICC LINE IN [facility] THIS AFTERNOON AND PT STATES THAT HE SPOKE WITH HIS FAMILY AND HE HAS DECIDED TO NOT GO THROUGH WITH IT TODAY AND THAT HE WOULD LIKE TO REDISCUSS THIS WITH DR DONIS WHEN HE DOES HIS ROUNDS TOMORROW. DR ARRIETA NOTIFIED OF THIS. NO NEW ORDERS AT THIS TIME.
--- NOTE | 2019-04-28 18:18 | NUR ---
pt agrees to ambulate in [place], pt ambulates with sba and fww one lap around nursing station. Pt developed nausea during ambulation so prn iv zofran adminsitered per pt request. No emisis but pt does spit up some clear saliva. Pt back to bed SCD's reapplied and ng back to liws. IV fluids continue to infuse as ordered. call light and personal belongings in reach. Pt denies further needs or concerns.
--- NOTE | 2019-04-28 19:00 | NUR ---
RECEIVED REPORT AT NURSES STATION. PER REPORT PT WOULD RATHER SHIFT CHANGE NOT OCCUR IN HIS ROOM.
--- NOTE | 2019-04-28 19:40 | NUR ---
PT CALLED REPORTING NAUSEA. ADMINISTERED PHENERGAN VIA IV PUMP. WILL RETURN WHEN PT IS DONE WITH GABI TERRY TO FINISH REMAINDER OF MEDICATIONS. TASHA Ceron IS IN THE ROOM WITH PT AT THIS TIME.
--- NOTE | 2019-04-28 20:19 | NUR ---
TOOK VITALS, RECORDED CARNEY OUTPUT
--- NOTE | 2019-04-28 20:30 | NUR ---
PT'S DAUGHTER CALLED BUT PT WAS NOT IN THE MOOD TO TALK ON THE PHONE BUT WAS OKAY WITH THIS RN TALKING WITH HER. SHE SAID HE EXPRESSED TO HIS BROTHER ABOUT WANTING TO BE TRANSFERED TO ANOTHER FACILITY. ALTHOUGH THE PT DID NOT SAY THIS TO THIS RN MARIO. PT'S DAUGHTER ASKED QUESTIONS ABOUT THE TRANSFER PROCESS AND AFTER CHECKING WITH THE MMD UNIT TEACHER THIS RN EXPLAINED THAT THE DR. WOULD HAVE TO COORDINATE THIS BY FINDING ANOTHER DR THAT WOULD ACCEPT THE PT. SHE WAS ALSO GIVEN A GENERAL UPDATE ON HOW PT IS DOING AND SHE DENIED FURTHER NEEDS.
--- NOTE | 2019-04-28 21:40 | NUR ---
IN ROOM TO HANG FLAGYL. PT IS AWAKE IN BED. HE DENIES NEEDS AT THIS TIME. CALL LIGHT IS WITHIN REACH.
--- NOTE | 2019-04-28 22:41 | NUR ---
IN ROOM TO ADMINISTER MAXIPIME. PT IS AWAKE IN BED WATCHING TV. HE SAID THE IV IN HIS HAND WAS BOTHERING HIM, THAT THE COBAN WAS MAKING HIS HAND RAW. UNWRAPPED IT PER HIS REQUEST. PT WAS OK WITH LEAVING THE IV IN PLACE TO SEE IF THAT MADE IT FEEL BETTER. IT FLUSHED FINE AND THERE ARE NO PROBLEMS WITH IT OTHER THAN BEING AT THE BEND IN HIS WRIST CAUSING DISCOMFORT. PT DENIES FURTHER NEEDS AND CALL LIGHT IS CLOSE.
--- NOTE | 2019-04-29 00:08 | NUR ---
IN ROOM TO ADMINISTER BENADRYL BECAUSE PT REPORTS HE CANNOT SLEEP. HE DENIES FURTHER NEEDS AT THIS TIME. CALL LIGHT IS WITHIN REACH.
--- NOTE | 2019-04-29 01:49 | NUR ---
PT IS RESTING WITH EYES CLOSED, RR IS EVEN AND NONLABORED. IV IS INFUSING FINE AND NG TUBE IS ON LIS. CALL LIGHT IS CLOSE.
--- NOTE | 2019-04-29 03:10 | NUR ---
PT'S NG TUBE WAS CLAMPED TO GET UP TO THE RESTROOM. HE WAS FEELING CRAMPY AND THOUGHT HE MIGHT HAVE A BM. HE WAS UNABLE TO GO AND STATES HE DID NOT PASS ANY GAS EITHER. HE IS BACK IN BED AND NAUSEA SET IN. ZOFRAN WAS ADMINISTERED AND PT REPORTS THIS HAPPENS EVERYTIME HE GETS UP AND HAS TO CLAMP NG TUBE. BROUGHT BEDSIDE COMMODE INTO ROOM AND TALKED WITH PT ABOUT USING IT NEXT TIME AND HE LIKED THAT IDEA. PT DENIES FURTHER NEEDS AT THIS TIME. CALL LIGHT IS WITHIN REACH.
--- NOTE | 2019-04-29 05:49 | NUR ---
asst DE LEON c\ am vitals\I&Os
--- NOTE | 2019-04-29 05:51 | NUR ---
IN ROOM TO START IV ABX. WOKE PT AND HE FELL BACK ASLEEP. IV IS INFUSING FINE AND PT DENIES NEEDS. CALL LIGHT IS WITHIN REACH.
--- NOTE | 2019-04-29 07:58 | NUR ---
NG PLACED TO GRAVITY CARNEY BAG PER DOC ORDERS. TO REMOVE EVERY OTHER ABD STAPLE SHORTLY. PT REQUESTED PAIN MEDICATION AT THIS TIME PRIOR TO REMOVAL; TYLENOL IVP ADMIN-SEE SEP.
--- NOTE | 2019-04-29 10:00 | NUR ---
REMOVED EVERY OTHER STAPLE FROM MIDLINE INCISION. 14 TOTAL LEIGH REMOVED. INCISION WELL APPROXIMATED, HEALING WITH NO DRAINAGE. PT TOLERATED WELL.
--- NOTE | 2019-04-29 11:38 | NUR ---
PT DOING WELL. HE REPORTED HAVING A LARGE BM TODAY. PT STATES HE IS STARTING TO HAVE FLATUS. HYPOACTIVE BT'S IN ALL QUADRANTS.
--- NOTE | 2019-04-29 13:04 | NUR ---
PT IN BED, A&POX4. PT ON RA, RESP EVEN AND NON LABORED.
--- NOTE | 2019-04-29 18:34 | NUR ---
PT SITTING UP IN BED, A&OX3. PT ON RA, RESP EVEN AND NON LABORED. PT DENIES PAIN. PERSONAL SUPPLIES AND CALL LIGHT WITHIN REACH.
--- NOTE | 2019-04-29 19:16 | NUR ---
REPORT AT BEDSIDE. NO C/O PAIN OR DISCOMFORT AT THIS TIME. ASSISTED PT UP TO RESTROOM. REVIEW 350ML WATER EVERY 8 HOURS. PT HAS TAKEN 100ML, LEAVING 250ML.
--- NOTE | 2019-04-29 22:08 | NUR ---
PT HAVING DIFFICUTLY SLEEPING AND GETTING REST DUE TO SCD'S. PT REQUESTING THEM OFF AT THIS TIME. WILL TRY TO PLACE AGAIN LATER.
--- NOTE | 2019-04-30 01:58 | NUR ---
PT UP SBA WITH FWW FOR BM. BMX1 SUCCESSFUL. CARNEY CATHETER IN PLACE, VOIDING YELLOW URINE AT THIS TIME. PT BACK IN BED, DENIES NEEDS. IV FLUIDS INFUSING PER MD ORDERS. CALL LIGHT IN REACH.
--- NOTE | 2019-04-30 04:11 | NUR ---
PT RESTING IN BED WITH EYES CLOSED. NO C/O AT THISD TIME. CALL LIGHT IN REACH
--- NOTE | 2019-04-30 04:16 | NUR ---
PT CALLS APPROPRIATELY FOR ASSISTANCE TO RESTROOM.
--- NOTE | 2019-04-30 05:21 | NUR ---
PT RESTED WELL IN ROOM WITHOUT SCD PLACED. PT C/O SCD KEPT HIM AWAKE AND LIMITED HIS ABLITY TO GET COMFORTBALE. LUNG SOUNDS CLEAR. IV SITES INTACT AND FLUSH WELL. URINE IS CLEAR YELLOW DRAINING FROM CARNEY CATH. ABD INCISION OPEN TO AIR.
--- NOTE | 2019-04-30 07:15 | NUR ---
REPORT RECEIVED FROM MOISES GARCIA. PT STATES HE WANT TO LEAVE TODAY AND HE IS PLANNING TO LEAVE AT NOON "NO MATTER WHAT YOU SAY." THERAPUTIC COMMUNICATION DONE WITH PT. PT DENIES PAIN AND NAUSEA. CALL LIGHT WITHIN REACH.
--- NOTE | 2019-04-30 09:00 | NUR ---
MD TO BEDSIDE FOR ROUNDS. PT AGREES WITH PLAN OF CARE AND STATES HE WILL STAY "ONE MORE DAY." NEW ORDERS PLACED. ASSESSMENT DONE. SBA, FWW UP TO RESTROOM AND THEN TO CHAIR. LOOSE BM NOTED. PT ASSISTED WITH ORDERING BREAKFAST. PT PLEASESNT AT THIS TIME. PT DENIES PAIN AND NAUSEA. LEIGH REMOVED PER MD ORDER. PIV IN UPPER LEFT FORARM IS PAINFUL TO PT, THIS PIV DC'D PER PROTOCOL, WNL. PIV IN LOWER LEFT FORARM FINISHING CEFEPEM. COFFEE PROVIDED. NO ADDIITONAL REQUESTS OR COMPLAINTS AT THIS TIME. CALL LIGHT WITHIN REACH.
--- NOTE | 2019-04-30 09:50 | NUR ---
NEW MEDICATION ORDERS VARIFIED BY PHARMACY. GIVEN ORDERED (SEE MAR). PT CONTINUES TO DENIES PAIN AND NAUSEA. PT REAMINS UP TO CHAIR EATING SMALL BITES OF CREAM OF WHEET AND COTTGE CHEESE. TOLERATING WELL. NO ADDIITONAL REQUESTS OR COMPLAINTS. CALL LIGHT WITHIN REACH.
--- NOTE | 2019-04-30 10:23 | NUR ---
PATIENT SITTING IN CHAIR GETTING READY TO WORK WITH PT. LINENS CHANGED. FRESH WATER GIVEN. CALL LIGHT IN REACH. NO FURTHER NEEDS AT THIS TIME.
--- NOTE | 2019-04-30 10:30 | NUR ---
THIS RN TO ROOM TO CHECK ON PT. PT UP TO WALK WITH PHYSICAL THERAPY. TOLERATING AMBULATION WELL. NO REQUESTS OR COMPLAINTS.
--- NOTE | 2019-04-30 12:35 | NUR ---
PATIENT UP TO SHOWER CHAIR, SBA FWW. PATIENT IND IN SHOWER. PATIENT NOW BACK TO CHAIR. CALL LIGHT IN REACH. NO FURTHER NEEDS AT THIS TIME.
--- NOTE | 2019-04-30 13:06 | NUR ---
NOON ASSESSMENT DUE. PT ENCOUAGED TO AMBULATE. PT UP TO AMBULATE IN MAIN CAL[place] DOWN TO SURGERY DEPARTMENT AND BACK, SBA FWW. PT DENIES PAIN AND NAUSEA. MID LINE INCISION SHOWS EDGES APROXIMATED. PT TOLERATING FULL LIQUID DIET, DENIES NAUSEA. PT VERY IRRITABLE STATING HE WANTS TO GO HOME NOW. PT STATES HE WANTS TO STAY THE NIGHT "BUT ALL THEY DO IS PUT CHEMICALS INTO ME." EDUCATION REGARDING ABX MEDICATIONS DONE. PT DECLINES INSTRUCTION STATING "I JUST DON'T CARE AND I DONT' WANT TO KNOW." NO ADDITIONAL REQUESTS OR COMPLAINTS. CALL LIGHT WITHIN REACH.
--- NOTE | 2019-04-30 13:45 | NUR ---
ABX DUE. THIS RN TO BEDSIDE. PT WATCHING TV. PT DENIES PAIN AND NAUSEA. IV ABX STARTED. NO ADDTIONAL REQUESTS OR COMPLAINTS AT THIS TIME. CALL LIGHT WITHIN REACH.
--- NOTE | 2019-04-30 15:18 | NUR ---
THIS RN TO ROOM TO CHECK NO PT. PT RESTING WITH EYES CLOSED. RESPIRATIONS EVEN AND UNLABORED. BED RAILS UP. CALL LIGHT WITHIN REACH.
--- NOTE | 2019-04-30 16:41 | NUR ---
THIS RN TO ROOM FOR AFTERNOON ASSESSMENT AND MEDICATION. PT STATES HE IS "LEAVING RIGHT NOW" AND BEGINS PULLING AT IV LINE. EDUCATION DONE WITH PT ABOUT HIS RIGHT TO LEAVE AND RISKS IF HE DOES. PT STATES "I DON'T CARE, I'M LEAVING ANYWAY." PT SWINGING ARMS AT THIS RN. CHARGE NURSE NOTIFIED, BENEFIT AUTHORIZER CALLED. BENEFIT AUTHORIZER TO ROOM. PT CONTINUES TO STATE HE WANTS TO LEAVE. "GIVE ME WHATEVER PAPERWORK I NEED TO SIGN. i"M LEAVING." NOTIFIED. AMA PAPERWORK COMPLETED. PT VERBALIZES UNDERSTANDING OF THE RISKS OF LEAVING THE HOSPITAL AT THIS TIME. CARNEY DC'D PER PROTOCOL. PIV DC'D PER PROTOCOL. PT DRESSES SELF. ALL PT BELONGINGS PACKED AND RETURN TO PT. PT WHEELED FROM MED/SURG UNIT BY SECURITY (JENN).
--- NOTE | 2019-05-02 07:33 | DS ---
[facility] [address], [place] [address] Signed ADMISSION DATE: 04/14/2019 DISCHARGE DATE: 04/30/2019 FINAL DIAGNOSES: 1. 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 2. Pneumonia. PROCEDURES PERFORMED: 1. Right colectomy on 04/14/2019. 2. Small bowel resection and partial colectomy and placement of triple-lumen catheter with ultrasound guidance on 04/20/2019. HISTORY OF PRESENT ILLNESS: Kiana is a 69-year-old gentleman, who three years previously had significant polyps removed from his colon. He came to us in February of 2019 for repeat colonoscopy. He had a mass in the cecum opposite the ileocecal valve along with multiple other polyps and diverticulosis with a little bit of internal hemorrhoids. Pathology came back with villoglandular tissue. However, the lesion was too large to remove endoscopically. We therefore made plans to bring him to the hospital to have a right colectomy. HOSPITAL COURSE: Pavel was brought in the hospital and underwent his right colectomy with a standard stapled [id number] ileocolic anastomosis on 04/14/2019. He was demonstrating an ileus versus an obstruction near the anastomosis within a few days. We had repeated abdominal x-rays and labs and so forth. I explained to Pavel we needed to take him back to the operating room to reevaluate that area. He went back on 04/20/2019. He had some chronic inflammatory changes near the gallbladder and overlying the duodenum that held the colon in place and tethered it a bit and consequently the weight of the small bowel had flipped the small bowel over at the level of the anastomosis. It was not twisted, it was actually flipped over that had to be completely freed up. I resected into the small bowel and into the transverse colon and performed side-to-end ileocolonic anastomosis hand-sewn in 2 layers. That allowed the small bowel to come up quite gently and in a direct line with the transverse colon at that point. We placed a triple-lumen catheter also for ongoing support and ICU support and TPN. Pavel went through an expected postop course afterwards. We had to run his entire small bowel from the ligament of Treitz all the way to the end to evacuated all the air and all the fluid in order to place the bowel back in the abdomen. Of course, that resulted in the typical 7-10 day ileus which he went through. We had spent a lot of time talking with Pavel and his family today to review this and go over this multiple times. Pavel was very anxious about coming to the hospital and being in the hospital and talked frequently about Electronically Signed By: ISABELLA DONIS MD 05/02/19 0733 PATIENT NAME: KIANA JACKSON DISCHARGE SUMMARY DATE OF : 50 REPORT #: [id number] PHYSICIAN: ISABELLA DONIS MD PCP: ELIE ROSAS NP REPORT IS CONFIDENTIAL AND NOT TO BE RELEASED WITHOUT AUTHORIZATION [facility] [address] [place] [id number] Signed wanting to go home. Eventually, he had several bowel movements and flatus. We started him on some clear liquids and transitioned him to the full liquids the next day. However, Pavel had trouble with his Fitzgerald catheter out previously just two days off his medications for his bladder and his prostate. Consequently, we resumed his medications that day and with plans to remove the catheter the following morning. If he could spontaneously urinate then we are going to allow him to go home that next day. He was on a full liquid diet, we transition to a full liquid diet just that day. I spent nearly an hour discussing that with Pavel in the morning. Later that afternoon I received a phone call from our nurse, Dana, and clip decided he wanted to go home AMA. He had already called someone to have him come pick him up. Consequently, Dana had discontinued his Fitzgerald catheter and he left with his friend. DISCHARGE PLANS AND MEDICATIONS: Pavel was discharged home without any medications. All the fernando have already been removed. His Fitzgerald catheter was out. I discussed with Pavel the issue of his urinary symptoms in great detail more than one occasion. In addition, we talked about followup in the office in a week or so after discharge. In addition, he would need a followup colonoscopy anywhere from 1-3 years based on the final pathology report. We did get that final pathology report back and it shows he does have a villous and villoglandular adenomatous lesion with focal high-grade dysplasia. Thankfully, there was no invasion. The tumor measured 2.7 x 2.5 x 0.6 cm. At this point, Pavel is aware that he needed to slowly advance his diet and he could resume all his chronic medications at home. He is welcome to call and follow up in the office once he gets home. Isabella Donis MD ALB/MODL /[id number] cc: MD Jen Mcghee MD Copies: ISABELLA DONIS MD Electronically Signed By: ISABELLA DONIS MD 05/02/19 0733 PATIENT NAME: KIANA JACKSON DISCHARGE SUMMARY DATE OF : 50 REPORT #: [id number] PHYSICIAN: ISABELLA DONIS MD PCP: ELIE ROSAS NP REPORT IS CONFIDENTIAL AND NOT TO BE RELEASED WITHOUT AUTHORIZATION [address] [address] Signed ~ Electronically Signed By: ISABELLA DONIS MD 05/02/19 0733 PATIENT NAME: KIANA JACKSON DISCHARGE SUMMARY DATE OF : 50 REPORT #: [id number] PHYSICIAN: ISABELLA DONIS MD PCP: ELIE ROSAS NP REPORT IS CONFIDENTIAL AND NOT TO BE RELEASED WITHOUT AUTHORIZATION
== END 2019-04-30 16:45 | disposition left against medical advice (07) | DRG 329 ==
LOC: DSVR 04-14 08:30 → MS 04-14 08:30 → CCU 04-20 14:30 → MS 04-27 12:05
PROVIDERS: ADMIT Colon & Rectal Surgery
PROC: 3E0T3BZ Introduction of Anesthetic Agent into Peripheral Nerves and Plexi, Percutaneous Approach (ICD-10-PCS; 2019-04-14)
PROC: 0DTF0ZZ Resection of Right Large Intestine, Open Approach (ICD-10-PCS; principal; 2019-04-14 10:45)
PROC: 0DBE0ZZ Excision of Large Intestine, Open Approach (ICD-10-PCS; 2019-04-20)
PROC: 02HV33Z Insertion of Infusion Device into Superior Vena Cava, Percutaneous Approach (ICD-10-PCS; 2019-04-20)
PROC: 0DBB0ZZ Excision of Ileum, Open Approach (ICD-10-PCS; 2019-04-20 10:00)
DX: D12.0 Benign neoplasm of cecum (principal); J15.6 Pneumonia due to other Gram-negative bacteria; E44.1 Mild protein-calorie malnutrition; K91.30 Postprocedural intestinal obstruction, unspecified as to partial versus complete; I47.2 Ventricular tachycardia; J44.0 Chronic obstructive pulmonary disease with (acute) lower respiratory infection; G89.18 Other acute postprocedural pain; I25.10 Atherosclerotic heart disease of native coronary artery without angina pectoris; I10 Essential (primary) hypertension; E78.5 Hyperlipidemia, unspecified; E11.42 Type 2 diabetes mellitus with diabetic polyneuropathy; N40.0 Benign prostatic hyperplasia without lower urinary tract symptoms; N52.1 Erectile dysfunction due to diseases classified elsewhere; F17.200 Nicotine dependence, unspecified, uncomplicated; R33.9 Retention of urine, unspecified; Y92.239 Unspecified place in hospital as the place of occurrence of the external cause; Y83.6 Removal of other organ (partial) (total) as the cause of abnormal reaction of the patient, or of later complication, without mention of misadventure at the time of the procedure; Z79.82 Long term (current) use of aspirin; Z86.010 Personal history of colon polyps; Z53.29 Procedure and treatment not carried out because of patient's decision for other reasons; Z79.899 Other long term (current) drug therapy; Z68.25 Body mass index [BMI] 25.0-25.9, adult
CPT/HCPCS: 00790; 00840; 36415; 51798; 64488; 71045; 71046; 74018; 76942; 80048; 80053; 80061; 80069; 80076; 80202; 81001; 83036; 83605; 83735; 84075; 84080; 84100; 84134; 85007; 85025; 85032; 85610; 85730; 87070; 87077; 87088; 87147; 87186; 87205; 88305; 88307; 88309; 93306; 94640; 94668; 94760; 94762; 97110; 97116; 97162; 99406; C9113; J0131; J0330; J0690; J0692; J0696; J1100; J1170; J1200; J1644; J1650; J1885; J2060; J2250; J2270; J2370; J2405; J2550; J2704; J2795; J3010; J3370; J3430; J3475; J3480; J7060; J7120; J7121